=== PATIENT | male | born 1960 | race Caucasian/White ===

== ENCOUNTER → 2016-03-22 | Outpatient (CLI) | payer BC | END | disposition home or self-care (01) | CPT/HCPCS: 97802 ==

== ENCOUNTER 2016-04-08 08:53 | Day surgery (SDC) | payer BC ==
[2016-04-06 09:29] VITALS: BMI 45.1
[~2016-04-08 08:53] MED LIST: DEXAMETHASONE SOD PHOSPHATE 10 MG/ML 1 ML VIAL IV ONE; HEPARIN SODIUM,PORCINE 5,000 UNIT/ML 1 ML VIAL SQ ONE; MIDAZOLAM 2 MG/2 ML VIAL IV PRN; ceFAZolin 3 GM in SODIUM CHLORIDE 0.9% 100 ML IVPB ONE
[2016-04-08 09:12] VITALS: RESP 16
[2016-04-08] MEDS: LACTATED RINGERS 1,000 ML IV SCH (09:34)
[2016-04-08] MEDS ORDERED: LIDOCAINE 1% 20 ML VIAL (10MG/ML) FOR IV START INTRADERMA ONE ×2 (09:35→09:36)
[2016-04-08] MEDS: ONDANSETRON 4 MG/2 ML VIAL IVP ONE ×2 (09:37→14:46)
[2016-04-08] MEDS ORDERED: PROPOFOL 10 MG/ML 20 ML VIAL IV ONE (09:49)
[2016-04-08] MEDS ORDERED: ROCURONIUM BROMIDE 10 MG/ML 10 ML VIAL IV ONE (09:49)
[2016-04-08] MEDS ORDERED: MIDAZOLAM 2 MG/2 ML VIAL ONE (09:49)
[2016-04-08] MEDS ORDERED: GLYCOPYRROLATE 0.2 MG/ML 2 ML VIAL ONE (09:49)
[2016-04-08] MEDS ORDERED: fentaNYL (PF) 50 MCG/ML 2 ML AMP ONE (09:49)
[2016-04-08] MEDS ORDERED: SUCCINYLCHOLINE CHLORIDE VIAL 200 MG/10 ML VIAL IV ONE (09:49)
[2016-04-08] MEDS ORDERED: KETOROLAC 30 MG/ML 1 ML VIAL ONE (09:49)
[2016-04-08] MEDS ORDERED: LIDOCAINE 1% INJ 10MG/ML (20 ML MDV) ONE (09:49)
[2016-04-08] MEDS ORDERED: NEOSTIGMINE 1 MG/ML 10 ML VIAL ONE (09:49)
[2016-04-08] MEDS ORDERED: BUPIVACAIN-EPI 0.25%-1:200,000 30 ML VIAL SQ ONE (10:14)
[2016-04-08] MEDS ORDERED: LACTATED RINGERS 1,000 ML IV ONE (12:13)
--- NOTE | 2016-04-08 14:27 | P.OP ---
Date of Procedure: 04/08/16 Preoperative Diagnosis: Incarcerated ventral hernia Postoperative Diagnosis: Incarecerated ventral hernias containing preperitoneal fat, omentum and bowel, not stangulated Procedure(s) Performed: Robot assisted laparoscopic Ventral incisional hernia repair with mesh Implants: 20x 15 cm ventralight mesh with echo postioning system Anesthesia: LILLIAMA Surgeon: Shayy Falcon Estimated Blood Loss (ml): 15 Pathology: none sent Condition: stable Disposition: PACU Indications for Procedure: painful umbilical swelling with intermittent incarceration and pain. Operative Findings: 3 fasical defects between the umbilicus and epigastrium . Largest measured 2.1 x 1.8 other were smaller than 0.6 cm These contained the majority of the omentum , bowel and preperitoneal fat 2 fascial defects including hte umbilical hernia 1 cm accross and a smaller laterally 0.3 cm 2 fascial defects 5 cm inferior to the umbilicus on the right side of the midline. Description of Procedure: Informed consent was obtained and the patient prior to the operation. She was counseled in detail lose weight. The patient however was very impatient and did not want to go him to lose the recommended amount of weight. He also did not follow-up for sleep studies. According to the [facility] risk assessment to the patient has a complication rate of 23%. This was explained in detail to the patient. Due to the patient's severe symptoms and intermittent incarceration he was recommended this procedure and after a detailed discussion and multiple meetings informed consent was obtained as stated and confirmed in the preoperative area. Patient identified in the preoperative holding area taken the operating room placed in supine position given general anesthesia with endotracheal intubation. The patient's right arm was tucked and left was extended. After appropriately positioning the patient the patient was prepped and draped in the usual sterile surgical fashion. Appropriate timeout was called. Patient received 3 g of Ancef for skin prophylaxis and 5000 units of subcu heparin for thromboprophylaxis preoperatively. SCDs were placed. Left upper quadrant with a identified and infiltrated with lidocaine small incision was made with the help of 11 blade and then a Veress needle was introduced position of which was checked with the help of the drop test. The abdomen was then insufflated to 15 mmHg. Once that was done, 12 mm port was placed in the left upper quadrant and 2 8 mm ports were placed in the left upper quadrant and left lower quadrant respectively. At this time for laparoscopic scope was removed and the robot was docked with the 12 mm camera and the progress in the left hand and scissors in the right hand were taken.. The hernia was identified and it had incarcerated preperitoneal fat and omentum. This was gradually reduced so as to reduce all the omentum and the bowel. This revealed further 2 more fascial defects were next to the largest fascial defect which was measured to be approximately 2 cm x 1.5 cm. There are minimal less than 0.6 cm in size. The peritoneum was then stripped down To allow for good fascial exposure. Patient was noted to have diastases extending from xiphisternum to the bellybutton. At the level of the umbilicus there was one other fascial defect proximal to the 1 cm size containing preperitoneal fat as well as one other on the right lateral size approximately 0.3 cm in size. Due to further inferior to that both containing preperitoneal fat. Once all fascial margins were completely exposed the decision was made to close these fascial defects. The fascial defect right lateral to the umbilicus was closed with 0V lock. 2 of the 3 fascial defects in the epigastrium were also closed with V lock suture. The remaining were all very small and the decision was made to plicate the diastases and closed these fascial defects at that time. A running 4 Stratus fix was used starting from the epigastrium all the way down to the hypogastrium. The scope resulted in bringing the fascial margins close early symptoms and the patient attention on the initial suture closures and completely closing of all the other small fascial defects. The total length was measured to be approximately 20 cm. Decision was made to use a 15 x 20 ventral light mesh with echo positioning system which was brought through the 12 mm port site. After appropriate deployment of the balloon and having it opposed to the anterior abdominal wall mesh was sutured to the anterior abdominal wall at the edges with the help of 20V lock. At this time the balloon was deflated and removed. Another layer of suture was placed in the center of the mesh starting at the north and all the way down to the South end of the mesh thus suturing it in the center to the peritoneum as well. This was done under lower pressure of 12 mmHg. The mesh looked to be in good position and further document patient was obtained. The bowel and the bowel and the part of the omentum were all inspected and looked normal and healthy. At this time the procedure was completed the ruler the sutures and the balloon were all removed through the 12 mm port site after undocking of the robot. The 12 mm port site was closed with 4-0 PDS using a Tom Kohler. The ports were removed abdomen was desufflated and the skin was closed with the help of 4-0 Monocryl. Dermabond was applied. The patient tolerated the procedure well there were no complications patient was taken to recovery room in stable condition after extubation.
[2016-04-08 14:31] VITALS: TEMP 98
[2016-04-08] MEDS: HYDROmorphone 1 MG/ML 1 ML SYRINGE IVP PRN ×4 (14:40→15:12)
[2016-04-08] MEDS ORDERED: HYDROcodone/APAP 7.5-325MG 1 EACH TAB PO ONE (16:28)
[2016-04-08 17:13] VITALS: PULSE 75
[2016-04-08 17:14] VITALS: BP 175/86
== END 2016-04-08 17:33 | disposition home or self-care (01) ==
LOC: OR 08:53
PROVIDERS: ATTEND Surgery
DX: K43.6 Other and unspecified ventral hernia with obstruction, without gangrene (principal); E66.01 Morbid (severe) obesity due to excess calories; Z68.42 Body mass index [BMI] 45.0-49.9, adult; I10 Essential (primary) hypertension; E78.5 Hyperlipidemia, unspecified; Z79.899 Other long term (current) drug therapy
CPT/HCPCS: 49653; S2900

== ENCOUNTER → 2017-04-22 | Outpatient (CLI) | payer OTHER ==
--- NOTE | 2017-04-22 09:47 | CT ---
EXAMINATION TYPE: CT chest wo con DATE OF EXAM: 04/22/2017 COMPARISON: Unavailable HISTORY: pneumonia with abnormal chest xray CT DLP: 708.7 mGycm. Automated Exposure Control for Dose Reduction was Utilized. TECHNIQUE: CT scan of the thorax is performed without IV contrast. FINDINGS: LUNGS: The lungs are remarkable for only minimal posterior dependent atelectatic change, there is no concerning parenchymal mass or nodule identified. There is no pleural effusion or pneumothorax seen . The tracheobronchial tree is patent. MEDIASTINUM: Lack of IV contrast is noted to limit evaluation for mediastinal and especially hilar ad enopathy. There are no definitive greater than 1 cm hilar or mediastinal lymph nodes. No cardiomega ly or pericardial effusion is seen. OTHER: Coronary artery calcifications are present. Multiple subcentimeter hypodense foci are present scattered within the liver which are likely to represent cysts. IMPRESSION: Minimal dependent atelectasis, no evident airspace disease.
== END | disposition home or self-care (01) ==
LOC: RADCTMAIN 08:10
PROVIDERS: ATTEND Family Medicine
DX: J98.11 Atelectasis (principal)
CPT/HCPCS: 71250

== ENCOUNTER → 2018-02-13 | Outpatient (CLI) | payer OTHER ==
--- NOTE | 2018-02-13 07:56 | MR ---
EXAMINATION TYPE: MR shoulder LT wo con DATE OF EXAM: 02/13/2018 COMPARISON: 01/06/2018 HISTORY: Left shoulder pain TECHNIQUE: Multiplanar, multisequence imaging of the left shoulder is performed without contrast. FINDINGS: Rotator Cuff: There is a near full-thickness focal bursal surface tear of the anterior fibers of the supraspinatus measuring 1.2 x 1.5 cm. Additionally there is an articular surface tear of the fibers j ust distal to the myotendinous junction measuring 1.0 x 0.9 cm. Near the insertional fibers of the mi d and anterior supraspinatus there is a full-thickness 1.5 x 2.5 cm tear. There is mild tendinopathy of the remaining supraspinatus fibers. There is moderate tendinopathy of the infraspinatus with signal alteration of the myotendinous juncti on and distal fibers. A small articular surface tear of the insertional fibers measures 3 mm x 7 mm. Focal fissures are seen of the insertional fibers with additional bursal surface fraying. There is a bursal surface partial thickness tear measuring 6 x 8 mm of distal fibers. The teres minor demonstrates bursal surface fiber fraying without discrete tear. The subscapularis although is intact his diminutive fibers crossing the bicipital groove and altered intrinsic signal of mild tendinopathy. Acromioclavicular Joint: There is moderate acromioclavicular arthropathy with subchondral cysts, caps ular hypertrophy and marginal osteophytes. This creates impression upon the supraspinatus and interna l impingement. No significant downsloping of the acromion. Glenohumeral Joint: There is a high riding humeral head and mild glenohumeral arthropathy with joint space narrowing. Labrum: The labrum appears grossly intact given limitation of non-arthrogram study. However there diandra ears to be global labral degeneration. Biceps Tendon: There is a torn long head of the biceps tendon with few fibers that are seen extra art icularly and complex fluid of hemorrhage and debris. Bone marrow signal: No focal abnormal marrow signal is appreciated. Other: Fluid is seen within the subcoracoid and subdeltoid/subacromial bursa. IMPRESSION: 1. Full-thickness tear of the anterior fibers of the supraspinatus measuring 1.5 x 2.5 cm. No signifi cant supraspinatus atrophy. 2. Near full-thickness focal partial surface tear of the anterior fibers of the supraspinatus measuri ng 1.2 x 1.5 cm. 3. Small articular surface tear of the insertional fibers of the infraspinatus measuring 3 x 7 mm, bu rsal surface fraying, moderate tendinopathy, and partial-thickness tear of the bursal surface fibers measuring 6 x 8 mm distally. 4. Full-thickness tear of the biceps tendon with few fibers seen extra articularly as well as hemorrh age. 5. Moderate acromioclavicular arthropathy creating internal impingement of the supraspinatus. 6. Global labral degeneration. 7. Fluid within the subacromial/subdeltoid bursa and subcoracoid bursa from a small joint effusion. A dditionally clinically correlate for bursitis. 8. Tendinopathy appearing mild of the insertional fibers of the subscapularis and bursal surface fray ing of the teres minor.
== END | disposition home or self-care (01) ==
LOC: RADMRIMAIN 06:04
PROVIDERS: ATTEND Orthopaedic Surgery
DX: S46.212A Strain of muscle, fascia and tendon of other parts of biceps, left arm, initial encounter (principal); M19.012 Primary osteoarthritis, left shoulder; M25.012 Hemarthrosis, left shoulder; M75.122 Complete rotator cuff tear or rupture of left shoulder, not specified as traumatic; S46.912A Strain of unspecified muscle, fascia and tendon at shoulder and upper arm level, left arm, initial encounter; M67.814 Other specified disorders of tendon, left shoulder

== ENCOUNTER → 2018-03-31 | Outpatient (CLI) | payer BC ==
[2018-03-31 08:06] LABS: Basophils # (A) 0.1 k/uL (0-0.2); Basophils % (A) 1 %; Eosinophils # (A) 0.2 k/uL (0-0.7); Eosinophils % (A) 3 %; HCT 48.8 % (39.0-53.0); HGB 16.3 gm/dL (13.0-17.5); Lymphocytes # (A) 1.8 k/uL (1.0-4.8); Lymphocytes % (A) 27 %; MCH 32.6 pg (25.0-35.0); MCHC 33.5 g/dL (31.0-37.0); MCV 97.3 fL (80.0-100.0); Mean Platelet Volume 7.1; Monocytes # (A) 0.4 k/uL (0-1.0); Monocytes % (A) 5 %; Neutrophils # (A) 4.1 k/uL (1.3-7.7); Neutrophils % (A) 61 %; Platelet Count 197 k/uL (150-450); RBC 5.02 m/uL (4.30-5.90); RDW 12.8 % (11.5-15.5); WBC 6.7 k/uL (3.8-10.6)
[2018-03-31 08:41] LABS: Potassium 4.8 mmol/L (3.5-5.1)
== END | disposition home or self-care (01) ==
LOC: LABPAT 07:16
PROVIDERS: ATTEND Orthopaedic Surgery
DX: Z01.818 Encounter for other preprocedural examination (principal); M75.42 Impingement syndrome of left shoulder; Z01.812 Encounter for preprocedural laboratory examination
CPT/HCPCS: 36415; 80051; 85025; 93005

== ENCOUNTER → 2018-04-12 | Day surgery (SDC) | payer BC, OTHER ==
[2018-03-31 15:16] VITALS: BMI 41.0
--- NOTE | 2018-04-11 14:10 | HP ---
HISTORY AND PHYSICAL DATE OF SURGERY: 04/12/2018 Jefferson Sebastian is a 57-year-old patient seen with progressive left shoulder pain. We discussed treatment options. He elected to proceed with arthroscopy. Consent was obtained. PAST MEDICAL HISTORY: Hypertension, hyperlipidemia, hypothyroidism. PAST SURGICAL HISTORY: Right knee arthroscopy. DAILY MEDICATIONS: Atenolol, atorvastatin, levothyroxine, Lotensin. ALLERGIES: None. SOCIAL HISTORY: Denies tobacco use. PHYSICAL EVALUATION OF THE LEFT SHOULDER: Flexion 160 degrees, abduction is 140 degrees, external rotation is 30 degrees with pain and weakness. Tenderness is noted along the anterolateral acromion and rotator cuff insertion site. There is a positive impingement sign at 90 degrees. His distal neurovascular exam is intact. RADIOGRAPHS OF THE LEFT SHOULDER: Revealed a type 2 anterior acromion and cystic changes of the greater tuberosity. MRI of the left shoulder revealed rotator cuff tear and acromioclavicular joint osteoarthritis. IMPRESSION: 1. Left shoulder impingement with rotator cuff tear. 2. Left shoulder acromioclavicular joint osteoarthritis. PLAN: Left shoulder arthroscopy with subacromial decompression, possible arthroscopic rotator cuff repair, possible Odilon procedure and debridement. MMODL / IJN: [id number] /
[~2018-04-12] MED LIST changes: -HEPARIN SODIUM,PORCINE 5,000 UNIT/ML 1 ML VIAL SQ ONE; +HYDROmorphone 0.5 MG/0.5 ML SYRINGE IVP PRN; +LACTATED RINGERS 1,000 ML IV SCH; +LIDOCAINE 1% 20 ML VIAL (10MG/ML) FOR IV START INTRADERMA PRN; +LIDOCAINE 1% INJ 10MG/ML (20 ML MDV) ONE; -MIDAZOLAM 2 MG/2 ML VIAL IV PRN; +MIDAZOLAM 2 MG/2 ML VIAL ONE; +ONDANSETRON 4 MG/2 ML VIAL IVP ONE; +PHENYLEPHRINE-0.9% NACL SYG 1 MG/10 ML SYRINGE ONE; +PROPOFOL 10 MG/ML 20 ML VIAL IV ONE; +ROPIVACAINE 5 MG/ML 30 ML VIAL ONE; +SCOPOLAMINE 1.5MG/72HR PATCH TRANSDERM ONE; +SUCCINYLCHOLINE CHLORIDE VIAL 200 MG/10 ML VIAL IV ONE; -ceFAZolin 3 GM in SODIUM CHLORIDE 0.9% 100 ML IVPB ONE; +fentaNYL (PF) 50 MCG/ML 2 ML AMP ONE
[2018-04-12 09:23] VITALS: RESP 16
--- NOTE | 2018-04-12 10:33 | P.ONQ ---
Anesthesiology Proc Note - PNB - Peripheral Nerve Block Performed Left Interscalene Single Time Out Performed: Yes Procedure Start Time: :46 Procedure Stop Time: :58 Indication: Acute Post-Operative Pain, Analgesia, Requested by physician Sedation Type: Sedate with meaningful contact maintained Preparation: Sterile Prep Position: Supine Catheter: None Needle Types: On-Q Needle Size: 50mm (2") Technique: Ultrasound Injectate: 0.5% Ropivacaine (see comment for volume) (total 20ml) Blood Aspirated: No Pain Paresthesia on Injection Noted: No Resistance on Injection: Normal Events: Uneventful and Well Tolerated
--- NOTE | 2018-04-12 12:06 | P.OP ---
Date of Procedure: 04/12/18 Preoperative Diagnosis: Left shoulder impingement Postoperative Diagnosis: 1. Left shoulder rotator cuff tear 2. Left shoulder impingement 3. Left shoulder acromioclavicular joint osteoarthritis Procedure(s) Performed: 1. Left shoulder arthroscopic rotator cuff repair 2. Left shoulder arthroscopic subacromial decompression 3. Left shoulder arthroscopic Odilon procedure Implants: 54.75 Arthrex swivel lock anchors Anesthesia: GETA, regional (Interscalene block) Surgeon: Duncan Duran Feed Crusher Operator #1: Jose David Malin Estimated Blood Loss (ml): 10 Pathology: none sent Condition: stable Disposition: PACU Indications for Procedure: 57-year-old patient seen with progressive left shoulder pain. After treatment options were discussed, he elected to proceed with arthroscopy. Operative Findings: See description of procedure Description of Procedure: Patient underwent an interscalene block by department of anesthesia. The patient was then taken to the operative suite. The patient underwent a general anesthetic by the department of anesthesia. The patient was placed into a lateral position and secured. There was appropriate padding of the bony prominence. Left shoulder was then prepped and draped in normal sterile orthopedic fashion. We placed the extremity in 10 pounds of longitudinal traction. A posterior incision was now made for a posterior working portal site. The trocar and cannula were inserted into the glenohumeral joint. Arthroscopy was initiated. Spinal needle was now inserted anteriorly, to ascertain the anterior working portal site. An incision was now made in that area, a trocar was inserted followed by a probe. There was an obvious long head biceps tendon rupture with a reminiscent stump. I introduced a motorized shaver through the anterior working portal site debrided that down to stable tissue. The labrum was probed and found to be stable. There were some grade 1 chondral moist changes of the humeral head but no osteochondral tears were present. I couldn't visualize a large rotator cuff tear from the glenohumeral side. At this point instruments removed from glenohumeral joint. Utilizing the posterior working portal site, the trocar and cannula were inserted into the subacromial space. Arthroscopy initiated. I made an incision 2 fingerbreadths lateral to the acromion. I introduced my trocar followed by my ArthroCare ablator. I now began ablating thick subacromial bursal tissue, which exposed the undersurface of the anterior acromion. There was diminished subacromial space. There was a very prominent anterior acromion. A motorized bur was introduced and a subacromial decompression was performed. I also excised some osteophytes off the inferior aspect of the distal clavicle. The AC joint was visualized and noted to be fairly arthritic. The motorized bur was introduced in the anterior portal site and a Odilon procedure was performed without difficulty, decompressing the AC joint nicely. I turned my attention to the rotator cuff. There was a 3 cm rotator cuff tear. I debrided the margins getting down to stable tendon tissue. I introduced my motorized bur and abraded the footprint area, getting some petechial bleeding. I now made an accessory portal site off the lateral aspect of the acromion. I punched 2 holes medial for medial row fixation with the assistance of Rob ALBA carefully tapping the punch with a mallet as I held the punch and the camera. I now introduced both anchors into the pre-punched holes and Rob ALBA tapped them with the mallet as I held anchors and the camera. Rob ALBA now screwed the anchors in place a while I held the anchor guide and camera. All 8 limbs of suture were now passed through good bites of rotator cuff tendon. I saw an area posteriorly with probable dogear and I passed 2 suture link sutures through that. I now punched 2 holes for lateral row fixation again I held the punch and camera while Rob ALBA used a mallet to tap in the punch. We now passed sutures through both anchors and individually I introduced the anchors into the pre-punch holes I held the anchor guide in position with one hand holding the camera with the other hand while Rob ALBA tensioned the sutures and screwed in the anchors one at a time. I now introduced one more anchor laterally to accommodate the 2 suture links. The residual suture limbs were now clipped. We had good compression of the tendon along the entire footprint. Instruments now removed from the portal sites. All portal sites were approximated with nylon suture. Sterile dressings were applied followed by a shoulder immobilizer. Jose David ALBA assisted in this complex case. The patient was awakened, transferred to a bed, and taken to recovery in stable condition.
[2018-04-12 12:11] VITALS: TEMP 97.8
[2018-04-12 13:34] VITALS: BP 134/71; PULSE 55
== END | disposition home or self-care (01) ==
LOC: OR 08:58
PROVIDERS: ATTEND Orthopaedic Surgery
DX: M75.102 Unspecified rotator cuff tear or rupture of left shoulder, not specified as traumatic (principal); M75.42 Impingement syndrome of left shoulder; M19.012 Primary osteoarthritis, left shoulder; M25.712 Osteophyte, left shoulder; I10 Essential (primary) hypertension; E78.5 Hyperlipidemia, unspecified; E03.9 Hypothyroidism, unspecified; E66.9 Obesity, unspecified; Z68.41 Body mass index [BMI] 40.0-44.9, adult; Z79.890 Hormone replacement therapy; Z79.899 Other long term (current) drug therapy; Z79.1 Long term (current) use of non-steroidal anti-inflammatories (NSAID)
CPT/HCPCS: 64415; 29824; 29827; 29826; C1713 ×4; C1765; J2250; J0330; J0690; J2001; J3010; J2795; J2370; J2704

== ENCOUNTER 2018-12-27 10:02 | Day surgery (SDC) | payer BC ==
[2018-12-25 15:23] VITALS: BMI 42.4
[~2018-12-27 10:02] MED LIST changes: -DEXAMETHASONE SOD PHOSPHATE 10 MG/ML 1 ML VIAL IV ONE; -HYDROmorphone 0.5 MG/0.5 ML SYRINGE IVP PRN; -LIDOCAINE 1% INJ 10MG/ML (20 ML MDV) ONE; -MIDAZOLAM 2 MG/2 ML VIAL ONE; -ONDANSETRON 4 MG/2 ML VIAL IVP ONE; -PHENYLEPHRINE-0.9% NACL SYG 1 MG/10 ML SYRINGE ONE; -PROPOFOL 10 MG/ML 20 ML VIAL IV ONE; -ROPIVACAINE 5 MG/ML 30 ML VIAL ONE; -SCOPOLAMINE 1.5MG/72HR PATCH TRANSDERM ONE; -SUCCINYLCHOLINE CHLORIDE VIAL 200 MG/10 ML VIAL IV ONE; -fentaNYL (PF) 50 MCG/ML 2 ML AMP ONE
[2018-12-27 10:51] VITALS: RESP 18; TEMP 97.7
[2018-12-27] MEDS ORDERED: PROPOFOL 10 MG/ML 20 ML VIAL IV ONE (11:20)
[2018-12-27] MEDS ORDERED: LIDOCAINE 1% INJ 10MG/ML (20 ML MDV) ONE (11:20)
--- NOTE | 2018-12-27 11:54 | P.PCN ---
Date of Procedure: 12/27/18 Procedure(s) Performed: BRIEF HISTORY: Patient is a 58-year-old [id number], scheduled for an elective colonoscopy as a part of screening for colorectal neoplasia. His sister was diagnosed with colon cancer at age 50. His last colonoscopy was 5 years ago. PROCEDURE PERFORMED: Colonoscopy with snare polypectomy. PREOPERATIVE DIAGNOSIS: Screening for colon cancer/family history of colon cancer. IV sedation per Anesthesia. PROCEDURE: After informed consent was obtained, the patient, was brought into the endoscopy unit. IV sedation was administered by Anesthesia under continuous monitoring. Digital rectal examination was normal. Initially the Olympus CF-160 flexible video colonoscope was then inserted in the rectum, gradually advanced into the cecum without any difficulty. Careful examination was performed as the scope was gradually being withdrawn. Ileocecal valve and the appendiceal orifice were visualized and appeared normal. Prep was excellent. The base of the cecum there was a 2 cm broad-based polyp that was removed by piecemeal snare polypectomy. Ascending colon there was a 1 cm polyp removed by snare polypectomy. Rest of the mucosa of the cecum, ascending colon, transverse colon, descending colon appeared normal. In the sigmoid colon there were 2 small sessile 5 mm polyps removed by snare polypectomy. Rest of the , sigmoid colon, and rectum appeared normal. Retroflexion was performed in the rectum and no lesions were seen. The patient tolerated the procedure well. IMPRESSION: 2 cm broad-based polyp in the base of the cecum status post piecemeal snare polypectomy 1 cm ascending colon polyp status post polypectomy 5 mm 2 sessile; polyp status post snare polypectomy RECOMMENDATIONS: Findings of this examination were discussed with the patient as well as his family. He was advised to follow with the biopsy results and have a repeat surveillance colonoscopy in 3 years from now.
[2018-12-27 12:15] VITALS: BP 102/67; PULSE 51
== END 2018-12-27 12:53 | disposition home or self-care (01) ==
LOC: ORWHC2ENDO 10:02
PROVIDERS: ATTEND Internal Medicine Gastroenterology
DX: Z12.11 Encounter for screening for malignant neoplasm of colon (principal); D12.0 Benign neoplasm of cecum; K63.5 Polyp of colon; I10 Essential (primary) hypertension; E78.5 Hyperlipidemia, unspecified; E07.9 Disorder of thyroid, unspecified; E66.01 Morbid (severe) obesity due to excess calories; Z80.0 Family history of malignant neoplasm of digestive organs; Z79.890 Hormone replacement therapy; Z79.899 Other long term (current) drug therapy; Z98.890 Other specified postprocedural states; Z68.41 Body mass index [BMI] 40.0-44.9, adult
CPT/HCPCS: 88305; 45385; J2001; J2704

== ENCOUNTER → 2020-04-15 | Outpatient (CLI) | payer BC | END | disposition home or self-care (01) | LOC: LABPAT 11:13 | PROVIDERS: ATTEND Orthopaedic Surgery | DX: Z01.812 Encounter for preprocedural laboratory examination (principal) | CPT/HCPCS: 87070 ==

== ENCOUNTER → 2020-05-05 | Outpatient (CLI) | payer BC ==
[~2020-05-05] MED LIST changes: +DOBUTamine DRIP for NUC MED 500 MG in DEXTROSE/WATER 1 250ML.BAG IV PRN; -LACTATED RINGERS 1,000 ML IV SCH; -LIDOCAINE 1% 20 ML VIAL (10MG/ML) FOR IV START INTRADERMA PRN
--- NOTE | 2020-05-05 16:45 | ECHOS ---
STRESS ECHOCARDIOGRAM DOBUTAMINE STRESS ECHOCARDIOGRAM DATE OF SERVICE: 05/05/2020 LUMASON: N/A Vial INDICATIONS: Chest pain. MEDICATIONS: BASELINE HEART RATE: 69 BASELINE BLOOD PRESSURE: 150/83 MAXIMUM HEART RATE: 145. MAXIMUM BLOOD PRESSURE: 165/82. 85% MPHR: 138 100% MPHR: 162 METS: MAXIMUM STAGE REACHED: 3 TOTAL EXERCISE TIME: 8:31 CLINICAL INFORMATION: STRESS DATA: Heart rate 69, pressure is 150/83 mmHg. Baseline EKG showed sinus mechanism. Dobutamine infusion at a dose of 10 mcg/kg per minute was initiated and increased to 30 mcg/kg per minute per protocol. Max heart rate was 145, which is about which is about 85% of maximum predicted heart rate. Maximum blood pressure was 165/82 mmHg. Clinically, the patient did not have any symptoms and the EKG did not show any significant ST or T-wave abnormalities concerning for ischemia. ECHOCARDIOGRAM IMAGES: On echocardiogram images from parasternal long axis, parasternal short axis view, apical 4 chamber and apical 2 chamber obtained as the baseline images, at the peak of the heart rate as well as on recovery and the echocardiogram images showed good augmentation in the left ventricular systolic function. CONCLUSION: 1. Normal EKG in response to dobutamine. 2. Normal echocardiogram in response to dobutamine. MMODL / IJN: [id number] /
== END ==
LOC: RADNMMAIN 09:12
PROVIDERS: ATTEND Family Medicine
DX: R94.31 Abnormal electrocardiogram [ECG] [EKG] (principal)
CPT/HCPCS: 93351; J1250; Q9950

== ENCOUNTER → 2020-05-06 | Outpatient (CLI) | payer BC ==
[2020-05-06 09:16] LABS: Basophils # (A) 0.1 k/uL (0-0.2); Basophils % (A) 1 %; Eosinophils # (A) 0.2 k/uL (0-0.7); Eosinophils % (A) 3 %; HCT 47.6 % (39.0-53.0); HGB 15.9 gm/dL (13.0-17.5); Lymphocytes # (A) 1.5 k/uL (1.0-4.8); Lymphocytes % (A) 25 %; MCHC 33.5 g/dL (31.0-37.0); MCV 95.4 fL (80.0-100.0); Mean Platelet Volume 7.4; Monocytes # (A) 0.4 k/uL (0-1.0); Monocytes % (A) 7 %; Neutrophils # (A) 3.9 k/uL (1.3-7.7); Neutrophils % (A) 63 %; Platelet Count 178 k/uL (150-450); RBC 4.99 m/uL (4.30-5.90); RDW 12.7 % (11.5-15.5); WBC 6.2 k/uL (3.8-10.6)
[2020-05-06 09:24] LABS: Prothrombin Time 10.6 sec (9.0-12.0)
[2020-05-06 09:29] LABS: Potassium 4.6 mmol/L (3.5-5.1)
== END | disposition home or self-care (01) ==
LOC: LABPAT 08:10
PROVIDERS: ATTEND Orthopaedic Surgery
DX: Z01.812 Encounter for preprocedural laboratory examination (principal); M17.12 Unilateral primary osteoarthritis, left knee
CPT/HCPCS: 36415; 80051; 85025; 85610

== ENCOUNTER 2020-05-12 08:21 | Day surgery (SDC) | payer BC ==
[2020-05-05 11:58] VITALS: BMI 39.6
--- NOTE | 2020-05-11 12:06 | HP ---
HISTORY AND PHYSICAL REASON FOR ADMISSION: Surgery scheduled 05/12/2020. HISTORY OF PRESENT ILLNESS: Jefferson Sebastian is a 59-year-old gentleman seen with progressive left knee pain. We discussed options. He elected to proceed with left total knee arthroplasty. Consent regarding the procedure was obtained. Medical clearance was provided by Dr. Berg. PAST MEDICAL HISTORY: Hypertension, hyperlipidemia, hypothyroidism. PAST SURGICAL HISTORY: Knee arthroscopy. MEDICATIONS: Atenolol, atorvastatin, levothyroxine, meloxicam, benazepril, hydrochlorothiazide. SOCIAL HISTORY: Denies current tobacco use. PHYSICAL EXAMINATION: Evaluation of the left knee: Range of motion 0-125. Moderate effusion. Tenderness medial joint line. Crepitus medial patellofemoral compartments with range of motion. Pain with patellofemoral compression. Ligaments stable. Hip rotation without pain. Distal neurovascular exam is intact. RADIOGRAPHS: Radiographs of the left knee reveal severe osteoarthritic changes. IMPRESSION: 1. Left knee osteoarthritis. 2. Hypertension. 3. Hyperlipidemia. 4. Hypothyroidism. PLAN: Left total knee arthroplasty. Surgery is 05/12/2020. MMODL / IJN: [id number] /
[~2020-05-12 08:21] MED LIST changes: +ACETAMINOPHEN TAB 500 MG TAB PO PRN; +DEXAMETHASONE SOD PHOSPHATE 4 MG/ML 1 ML VIAL IV ONE; -DOBUTamine DRIP for NUC MED 500 MG in DEXTROSE/WATER 1 250ML.BAG IV PRN; +LACTATED RINGERS 1,000 ML IV SCH; +LIDOCAINE 1% (10MG/ML) FOR IV START INTRADERMA PRN; +MELOXICAM 7.5 MG TAB PO PRN; +MIDAZOLAM 2 MG/2 ML VIAL IV PRN; +ONDANSETRON 4 MG/2 ML VIAL IVP ONE; +ROPIVACAINE/EPI/CLONIDINE/KET 50 ML SYRINGE MISCELLANE PRN; +TRANEXAMIC ACID 1,000 MG in SODIUM CHLORIDE 0.9% 100 ML IVPB PRN; +ceFAZolin 3 GM in SODIUM CHLORIDE 0.9% 100 ML IVPB PRN
[2020-05-12] MEDS ORDERED: ACETAMINOPHEN TAB 500 MG TAB ONE (09:03)
[2020-05-12] MEDS ORDERED: MIDAZOLAM 2 MG/2 ML VIAL IVP ONE (09:17)
[2020-05-12 09:43] VITALS: TEMP 97.3
--- NOTE | 2020-05-12 10:05 | P.ANPRN ---
Procedure Note - Anesthesia - Nerve Block Performed Left Adductor Canal Infusion Time Out Performed: Yes (916) Date of Procedure: 05/12/20 Procedure Start Time: :17 Procedure Stop Time: :30 Location of Patient: PreOp Indication: Acute Post-Operative Pain, Analgesia, Dx/Pain Location Specifically requested for management of pain by DrMehrdad: Duncan Duran Sedation Type: Sedate with meaningful contact maintained Preparation: Sterile Prep, Sterile Dressing Position: Supine Catheter: Indwelling Needle Types: Pajunk Needle Gauge: 20 Ultrasound used to visualize needle placement: Yes Ultrasound used to observe medication spread: Yes Injectate: 0.5% Ropivacaine (see comment for volume) (20 mL) Blood Aspirated: No Pain Paresthesia on Injection Noted: No Resistance on Injection: Normal Image Stored and Saved: Yes Events: Uneventful and Well Tolerated
--- NOTE | 2020-05-12 10:06 | P.ANPRN ---
Procedure Note - Anesthesia - Nerve Block Performed Left Other (see comment) Single Time Out Performed: Yes (916) Date of Procedure: 05/12/20 Procedure Start Time: :17 Procedure Stop Time: :30 Location of Patient: PreOp Indication: Acute Post-Operative Pain, Analgesia, Dx/Pain Location, Requested by Surgeon Specifically requested for management of pain by : Duncan Duran Sedation Type: Sedate with meaningful contact maintained Preparation: Sterile Prep Position: Supine Catheter: None Needle Types: Pajunk Needle Gauge: 20 Ultrasound used to visualize needle placement: Yes Ultrasound used to observe medication spread: Yes Injectate: 0.5% Ropivacaine (see comment for volume) (20 ML) Blood Aspirated: No Pain Paresthesia on Injection Noted: No Resistance on Injection: Normal Image Stored and Saved: Yes Events: Uneventful and Well Tolerated
[2020-05-12] MEDS ORDERED: ROCURONIUM 10 MG/ML (5 ML VIAL) IV ONE (10:12)
[2020-05-12] MEDS ORDERED: GLYCOPYRROLATE 0.2 MG/ML 2 ML VIAL ONE (10:12)
[2020-05-12] MEDS ORDERED: SODIUM CHLORIDE 0.9% 100 ML BAG ONE (10:12)
[2020-05-12] MEDS ORDERED: TRANEXAMIC ACID 1,000 MG/10 ML VIAL ONE (10:12)
[2020-05-12] MEDS ORDERED: PROPOFOL 10 MG/ML 20 ML VIAL IV ONE (10:12)
[2020-05-12] MEDS ORDERED: HYDROmorphone (PF) 1 MG/ML ONE (10:12)
[2020-05-12] MEDS ORDERED: fentaNYL (PF) 50 MCG/ML 2 ML AMP ONE (10:12)
[2020-05-12] MEDS ORDERED: SUCCINYLCHOLINE CHLORIDE 100 MG/5 ML SYR IV ONE (10:12)
[2020-05-12] MEDS ORDERED: NEOSTIGMINE 1 MG/ML 10 ML VIAL ONE (10:12)
[2020-05-12] MEDS ORDERED: MIDAZOLAM 2 MG/2 ML VIAL ONE (10:12)
[2020-05-12] MEDS ORDERED: ceFAZolin 1,000 MG in SODIUM CHLORIDE 0.9% 1,000 ML IRRIGATION ONE (10:45)
[2020-05-12] MEDS ORDERED: LACTATED RINGERS 1,000 ML IV ONE ×2 (11:45→12:10)
[2020-05-12] MEDS ORDERED: HYDROmorphone 0.5 MG/0.5 ML SYRINGE IVP PRN (12:10)
[2020-05-12] MEDS ORDERED: NALOXONE 0.4 MG/ML 1 ML VIAL IV PRN (12:10)
[2020-05-12] MEDS ORDERED: HYDROcodone/APAP 7.5-325MG 1 EACH TAB PO PRN (12:10)
[2020-05-12] MEDS ORDERED: HYDROmorphone 0.2 MG/1 ML SYRINGE IVP PRN (12:10)
[2020-05-12] MEDS ORDERED: ONDANSETRON 4 MG/2 ML VIAL IVP PRN (12:10)
[2020-05-12] MEDS ORDERED: HYDROcodone/APAP 5-325MG 1 EACH TAB PO PRN (12:10)
[2020-05-12] MEDS ORDERED: HYDROmorphone 1 MG/ML 1 ML SYRINGE IVP PRN (12:10)
--- NOTE | 2020-05-12 12:10 | P.OP ---
Date of Procedure: 05/12/20 Preoperative Diagnosis: Left knee osteoarthritis Postoperative Diagnosis: Left knee osteoarthritis Procedure(s) Performed: Left total knee arthroplasty Implants: 1. Depuy attune size 7 left cruciate retaining cemented femur 2. Depuy attune size 7 fixed bearing cemented tibial baseplate 3. Depuy attune size 7 fixed bearing cruciate retaining 12 mm polyethylene tibial insert 4. Depuy attune knee 38 mm all polyethylene cemented patella Anesthesia: GETA, regional (Adductor canal catheter, IPack block ) Surgeon: Duncan Duran Change Lead #1: Jose David Malin Estimated Blood Loss (ml): 45 Pathology: other (Bone) Condition: stable Disposition: PACU Indications for Procedure: 59-year-old patient seen with symptomatic left knee osteoarthritis. After treatment options were discussed, he elected to proceed with total knee arthroplasty. Operative Findings: See description of procedure Description of Procedure: Patient was taken to the operative suite after having an adductor canal catheter placed by the department of anesthesia and an I-Pack block performed by the department of anesthesia for postoperative pain management. Patient underwent a general anesthetic by the department of anesthesia. Patient was given preoperative IV intake antibiotics and TXA. A well-padded tourniquet was placed about the left lower extremity. The lower extremity was then prepped and draped in the normal sterile orthopedic fashion. The extremity was elevated, a tourniquet was insufflated to 300. A standard anterior incision was made sharply through skin. Dissection was taken down through the subcutaneous soft tissues down to the extensor mechanism. A medial arthrotomy was performed, patella was everted and knee was flexed. There was advanced osteoarthritis noted. I introduced my distal intramedullary femoral drill. I then introduced the distal femoral cutting jig. Rob ALBA secured the cutting jig with 2 pins. I held retractors in position while Rob ALBA performed the distal femoral resection through the guide area we now removed her distal femoral cutting guide. We now placed our 4-in-1 femoral cutting block and positioned and it was secured with 2 pins by Rob ALBA while I held the block in position. The distal femoral finishing was now completed. A proximal tibial cutting guide was positioned. I held the guide in the appropriate position with both hands well Rob ALBA inserted stabilizing pins into the guide. Proximal tibial cut was made. We now placed a trial femoral component into position, along with an appropriate size tibial tray and insert. We now took the knee through range of motion and had full extension good flexion and good overall soft tissue balance noted. The patella was everted and stabilized with 2 towel clips held by Rob ALBA while I performed a flush with patellar quad tendon utilizing a fresh sawblade. We templated the patella, appropriate drill holes were made. An appropriate trial patella was positioned, knee was taken through full range of motion with the patella tracking very nicely. The trial patella was removed. Drill holes were made through the femoral component. All trial components were removed after marking off the appropriate rotation of the tibia. Retractors were now positioned along the proximal tibia. An appropriate keel punch was made with the appropriate size tibial guide by myself on Rob ALBA assisted by holding retractors. At this point appropriate size implants were chosen and opened. The joint was irrigated copiously with pulse lavage mechanical irrigation. The posterior capsule was infiltrated with local analgesic. The wound was irrigated with pulse lavage mechanical irrigation. We mixed antibiotic methylmethacrylate. We placed the knee into flexion. We placed multiple retractors assisted by Rob ALBA to expose the proximal tibia. Once the methyl methacrylate was ready, the tibial component was cemented into place removing any excess methylmethacrylate form by both myself and Rob ALBA. The femoral component was cemented into place removing the removing any excess methylmethacrylate performed by both myself and Rob ALBA. We then inserted the appropriate size polyethylene tibial insert. We made sure that it was locked into position. We took the knee into full extension, and then back in a flexion making sure we had removed any excess methylmethacrylate. The patellar component was then cemented down and secured with clamp. Excess methylmethacrylate removed. We kept the knee in full exten kings, patellar clamp in position until methylmethacrylate had hardened. Once it had hardened the patellar clamp was removed. The knee was taken through full range of motion. The patella tracked nicely. There was good soft tissue balancing. The tourniquet was now released. Additional hemostasis was achieved via electrocautery. A second gram of TXA was given. The wound again was irrigated with pulse lavage mechanical irrigation. The superficial soft tissues were infiltrated local analgesic. The extensor mechanism was repaired with Vicryl. We checked the repair with range of motion and it was stable. The subcutaneous soft tissues were repaired with Vicryl in layers. The skin was approximated with pernio/Dermabond. Sterile dressings were applied followed by loose web roll and Ramses bandage. The patient was transferred to a bed, and taken to recovery in stable and satisfactory condition. Rob ALBA assisted with this complex procedure.
[2020-05-12] MEDS: HYDROmorphone 0.5 MG/0.5 ML SYRINGE IVP PRN ×4 (12:48→13:05)
[2020-05-12 12:49] VITALS: RESP 16
[2020-05-12] MEDS ORDERED: KETOROLAC 15 MG/ML 1 ML VIAL IVP ONE (12:55)
[2020-05-12] MEDS ORDERED: ROPIVACAINE 0.2%-NS ON-Q PUMP 1,090 MG, EMPTY PAIN BALL 1 EACH MISCELLANE PRN (12:56)
--- NOTE | 2020-05-12 14:09 | XR ---
EXAMINATION TYPE: XR knee limited LT DATE OF EXAM: 05/12/2020 COMPARISON: NONE HISTORY: 59-year-old male evaluation for postoperative abnormality in alignment. TECHNIQUE: 2 views FINDINGS: Images show placement of left total knee arthroplasty. Both distal femoral and proximal tibial compon ents of the prosthesis appear well seated without periprosthetic fracture. Alignment grossly anatomic . Surgical benton present along the medial tibial plateau, possible MCL repair. Underlying joint eff usion, anterior soft tissue swelling, scattered soft tissue air, and intra-articular air related to r ecent operation. IMPRESSION: Uncomplicated postoperative appearance left total knee arthroplasty. Additional surgical staple at th e medial tibial plateau.
[2020-05-12] MEDS ORDERED: HYDROcodone/APAP 7.5-325MG 1 EACH TAB PO ONE (14:29)
[2020-05-12] MEDS ORDERED: ceFAZolin 3 GM in SODIUM CHLORIDE 0.9% 100 ML IVPB ONE (16:00)
[2020-05-12 16:42] VITALS: BP 131/80; PULSE 61
== END 2020-05-12 17:07 | disposition home health service (06) ==
LOC: OR 08:21
PROVIDERS: ATTEND Orthopaedic Surgery
DX: M17.12 Unilateral primary osteoarthritis, left knee (principal); I10 Essential (primary) hypertension; E78.5 Hyperlipidemia, unspecified; E03.9 Hypothyroidism, unspecified; Z79.890 Hormone replacement therapy; Z79.899 Other long term (current) drug therapy; Z79.1 Long term (current) use of non-steroidal anti-inflammatories (NSAID)
CPT/HCPCS: 27447; 97110; 97161; 64447; 64448; 76942; 88300; 73560; C1776; C1713; J2250; J1100; J2710; J0690 ×2; J2405; J3010; J1170 ×2; J1885; J0330; J2704; J2795

== ENCOUNTER 2020-07-21 10:59 | Day surgery (SDC) | payer BC ==
[2020-07-17 11:37] VITALS: BMI 43.8
[~2020-07-21 10:59] MED LIST changes: +HYDROmorphone 0.5 MG/0.5 ML SYRINGE IVP PRN; -LACTATED RINGERS 1,000 ML IV SCH; -LIDOCAINE 1% (10MG/ML) FOR IV START INTRADERMA PRN; +Pre Op ABX Message 1 EACH MISC MISCELLANE ONE; +SCOPOLAMINE 1.5MG/72HR PATCH TRANSDERM ONE; -ceFAZolin 3 GM in SODIUM CHLORIDE 0.9% 100 ML IVPB PRN
[2020-07-21] MEDS: LACTATED RINGERS 1,000 ML IV SCH ×2 (11:41→16:36)
[2020-07-21] MEDS ORDERED: fentaNYL (PF) 50 MCG/ML 2 ML AMP IVP ONE ×2 (12:17→12:18)
[2020-07-21] MEDS ORDERED: MIDAZOLAM 2 MG/2 ML VIAL IVP ONE ×2 (12:17→12:18)
--- NOTE | 2020-07-21 12:32 | P.HPOR ---
History of Present Illness H&P Date: 07/21/20 Chief Complaint: Left knee quadriceps tendon rupture 60-year-old gentleman who had undergone left total knee arthroplasty approximately 2 months ago. About 12 days ago he was going down some stairs assisted hyperflexing and landing on his left knee. He was subsequently found to have a quadriceps tendon rupture. I recommended open repair. He was agreeable [facility] was obtained. Review of Systems Constitutional: Reports as per HPI Past Medical History Past Medical History: Hyperlipidemia, Hypertension, Thyroid Disorder Additional Past Medical History / Comment(s): hx of colon polyps, lt knee injury History of Any Multi-Drug Resistant Organisms: None Reported Past Surgical History: Hernia Repair, Joint Replacement, Orthopedic Surgery Additional Past Surgical History / Comment(s): lt rotator cuff, abdominal hernia repair, LT KNEE SX X 3. RT KNEE SX X 2, lt knee replacement Past Anesthesia/Blood Transfusion Reactions: No Reported Reaction Smoking Status: Never smoker - Past Family History Father Family Medical History: Cancer Additional Family Medical History / Comment(s): prostate, COLON Sister(s) Family Medical History: Cancer Additional Family Medical History / Comment(s): COLON Medications and Allergies Home Medications Medication Instructions Recorded Confirmed Type Atenolol [Tenormin] 50 mg PO QAM 03/04/15 07/21/20 History Atorvastatin [Lipitor] 20 mg PO DAILY 03/04/15 07/21/20 History Levothyroxine Sodium [Synthroid] 125 mcg PO QAM 03/04/15 07/21/20 History Benazepril HCl 20 mg PO BID 04/06/16 07/21/20 History hydroCHLOROthiazide 25 mg PO DAILY 04/06/16 07/21/20 History Meloxicam 7.5 mg PO BID 03/31/18 07/17/20 History Aspirin [Adult Low Dose Aspirin EC] 81 mg PO BID #60 tablet.dr 05/12/20 07/17/20 Rx Antibiotic (Unknown Name) 1 tab PO BID 07/17/20 07/21/20 History Cannabidiol (Cbd) [Epidiolex] 1 dose TOPICAL DAILY PRN 07/17/20 07/21/20 History Allergies Allergy/AdvReac Type Severity Reaction Status Date / Time No Known Allergies Allergy Verified 07/21/20 11:42 Physical Examination Osteopathic Statement: *. No significant issues noted on an osteopathic structural exam other than those noted in the History and Physical/Consult. There is a well-healed anterior incision left knee. There is a palpable defect at the superior patella/quadriceps tendon interface with a defect measuring 1.5 cm. The patient is unable to extend his knee. There is no erythema or evidence for infective process. Distal neurovascular exam is intact. Tyrese and Homans are both negative. Collateral ligaments are stable. Results - Labs Result Diagrams: 07/21/20 11:40 - Diagnostic results Knee x-ray: image reviewed (Stable appearing total knee arthroplasty with no fracture) Assessment and Plan Assessment: 1. Left knee quadriceps tendon rupture 2. History left total knee arthroplasty 3. Hypertension 4. Hyperlipidemia Plan: Open repair left knee quadriceps tendon rupture Time with Patient: Greater than 30
[2020-07-21] MEDS ORDERED: SODIUM CHLORIDE 0.9% 100 ML BAG ONE (13:03)
[2020-07-21] MEDS ORDERED: SUCCINYLCHOLINE CHLORIDE VIAL 200 MG/10 ML VIAL IV ONE (13:03)
[2020-07-21] MEDS ORDERED: PROPOFOL 10 MG/ML 20 ML VIAL IV ONE (13:03)
[2020-07-21] MEDS ORDERED: fentaNYL (PF) 50 MCG/ML 2 ML AMP ONE (13:03)
[2020-07-21] MEDS ORDERED: ROPIVACAINE 5 MG/ML 30 ML VIAL ONE (13:03)
[2020-07-21] MEDS ORDERED: DEXAMETHASONE SOD PHOSPHATE 4 MG/ML 1 ML VIAL ONE (13:03)
[2020-07-21] MEDS ORDERED: TRANEXAMIC ACID 1,000 MG/10 ML VIAL ONE (13:03)
[2020-07-21] MEDS ORDERED: LIDOCAINE 1% INJ 10MG/ML (20 ML MDV) ONE (13:03)
[2020-07-21] MEDS ORDERED: MIDAZOLAM 2 MG/2 ML VIAL ONE (13:03)
[2020-07-21] MEDS ORDERED: HYDROmorphone (PF) 1 MG/ML ONE (13:03)
[2020-07-21] MEDS ORDERED: ceFAZolin 1,000 MG in SODIUM CHLORIDE 0.9% 1,000 ML IRRIGATION ONE (13:30)
[2020-07-21] MEDS ORDERED: HYDROcodone/APAP 5-325MG 1 EACH TAB PO PRN (14:26)
[2020-07-21] MEDS ORDERED: NALOXONE 0.4 MG/ML 1 ML VIAL IV PRN (14:26)
[2020-07-21] MEDS ORDERED: LACTATED RINGERS 1,000 ML IV ONE (14:26)
[2020-07-21] MEDS ORDERED: HYDROmorphone 0.5 MG/0.5 ML SYRINGE IVP PRN (14:26)
[2020-07-21] MEDS ORDERED: ONDANSETRON 4 MG/2 ML VIAL IVP PRN (14:26)
[2020-07-21] MEDS ORDERED: HYDROmorphone 1 MG/ML 1 ML SYRINGE IVP PRN (14:26)
[2020-07-21] MEDS ORDERED: HYDROmorphone 0.2 MG/1 ML SYRINGE IVP PRN (14:26)
--- NOTE | 2020-07-21 14:26 | P.OP ---
Date of Procedure: 07/21/20 Preoperative Diagnosis: Left knee quadriceps tendon tear Postoperative Diagnosis: Left knee quadriceps tendon tear Procedure(s) Performed: Left knee open quadriceps tendon repair Anesthesia: GETA, regional (Adductor canal block), local Surgeon: Duncan Duran Rhia #1: Jose David Malin Estimated Blood Loss (ml): 25 Pathology: none sent Condition: stable Disposition: PACU Indications for Procedure: 60-year-old gentleman seen with a left knee quadriceps tendon tear. I recommended open repair. He was agreeable. Consent was obtained. Operative Findings: see description of procedure Description of Procedure: The patient was taken to the operative suite. Patient received an adductor canal block by the department of anesthesia. He underwent a general anesthetic by the department of anesthesia. He received preoperative IV antibiotics. A well-padded tourniquet was placed proximal left lower extremity. The left lower extremity was prepped and draped in the normal sterile orthopedic fashion. The extremity was elevated and tourniquet insufflated to 300. I made an incision through previous cicatrix. I immediately encountered hemarthrosis. That was evacuated. There was complete tear/rupture of the quadriceps tendon involving somewhat the lateral retinaculum. I dissected out and exposed the entire tear. Some of the frayed ends of the tendon were debrided out. The total knee arthroplasty appears stable. The joint was irrigated with pulse lavage mechanical irrigation. There was good tendon attachment along the proximal pole of the patella. I now it performed a [id number] tendon repair utilizing 6 Arthrex suture tapes with a proximal distal Krakw stitch technique. I now sewed each one individually approximated tendon very nicely. I now took the knee to about 80/90 of flexion with good stable repair noted. I now oversew the entire repair with #2 FiberWire. I again checked the repair with flexion to about 80/90 with good stable repair noted. The subcu soft tissues were approximated with 2-0 Vicryl. The skin was prepped with skin benton. Sterile dressings were applied. The tourniquet was released with immediate capillary refill the entire extremity noted. A sterile Ramses bandage was applied. The leg was placed into a immobilizer. The patient was awakened having tolerated procedure well. Rob ALBA assisted with the procedure.
[2020-07-21] MEDS: HYDROmorphone 1 MG/ML 1 ML SYRINGE IVP ONE ×2 (14:59→15:04)
--- NOTE | 2020-07-21 17:01 | P.CONS ---
History of Present Illness - Reason for Consult Consult date: 07/21/20 medical management - History of Present Illness This is a 60-year-old white male who 1 admitted to the hospital under or full for left knee quadriceps tendon rupture. He underwent surgery without complications. At the time of examination he's post op, no chest pain no abdominal pain no nausea no vomiting no shortness of breath. He reports some left knee pain that is mild. Family at bedside. He denies diarrhea or constipation. Review of Systems 10 systems reviewed, pertinent positive and negative findings as in HPI. No chest pain, no abdominal pain Past Medical History Past Medical History: Hyperlipidemia, Hypertension, Thyroid Disorder Additional Past Medical History / Comment(s): hx of colon polyps, lt knee injury History of Any Multi-Drug Resistant Organisms: None Reported Past Surgical History: Hernia Repair, Joint Replacement, Orthopedic Surgery Additional Past Surgical History / Comment(s): lt rotator cuff, abdominal hernia repair, LT KNEE SX X 3. RT KNEE SX X 2, lt knee replacement Past Anesthesia/Blood Transfusion Reactions: No Reported Reaction Smoking Status: Never smoker - Past Family History Father Family Medical History: Cancer Additional Family Medical History / Comment(s): prostate, COLON Sister(s) Family Medical History: Cancer Additional Family Medical History / Comment(s): COLON Medications and Allergies Home Medications Medication Instructions Recorded Confirmed Type Atenolol [Tenormin] 50 mg PO QAM 03/04/15 07/21/20 History Atorvastatin [Lipitor] 20 mg PO DAILY 03/04/15 07/21/20 History Levothyroxine Sodium [Synthroid] 125 mcg PO QAM 03/04/15 07/21/20 History Benazepril HCl 20 mg PO BID 04/06/16 07/21/20 History hydroCHLOROthiazide 25 mg PO DAILY 04/06/16 07/21/20 History Meloxicam 7.5 mg PO BID 03/31/18 07/17/20 History Aspirin [Adult Low Dose Aspirin EC] 81 mg PO BID #60 tablet. 05/12/20 07/17/20 Rx Antibiotic (Unknown Name) 1 tab PO BID 07/17/20 07/21/20 History Cannabidiol (Cbd) [Epidiolex] 1 dose TOPICAL DAILY PRN 07/17/20 07/21/20 History Allergies Allergy/AdvReac Type Severity Reaction Status Date / Time No Known Allergies Allergy Verified 07/21/20 11:42 Physical Exam Vitals: Vital Signs Temp Pulse Pulse Pulse Resp BP Pulse Ox 07/21/20 16:35 63 16 144/78 99 07/21/20 16:26 67 16 139/76 97 07/21/20 16:00 98.0 F 71 16 174/79 98 07/21/20 15:45 65 16 135/76 98 07/21/20 15:31 60 16 151/75 96 07/21/20 15:16 63 16 144/77 96 07/21/20 15:01 69 16 154/81 95 07/21/20 14:46 97.3 F L 76 15 138/71 95 07/21/20 12:29 58 L 16 130/62 97 07/21/20 11:35 97.2 F L 62 16 154/75 95 Intake and Output 07/21/20 07/21/20 07/21/20 06:59 14:59 22:59 Intake Total 1101 250 Output Total 20 Balance 1081 250 Intake: IV 1101 250 Output: Estimated Blood Loss 20 Other: Weight 136 kg Constitutional: No acute distress, conversant, pleasant Eyes: Anicteric sclerae, moist conjunctiva, PERRLA ENMT: NC/AT,Oropharynx clear Neck:Supple, FROM, no masses, or JVD Lungs: Clear to auscultation, Clear to percussion, Normal respiratory effort, no accessory muscle use Cardiovascular: Heart regular in rate and rhythm, No murmurs, gallops, or rubs no peripheral edema Abdominal: Soft Nontender, nom distended, no guarding, no rebound or rigidity, obese Skin: Normal temperature, tone, texture, turgor, No induration No subcutaneous nodules, No rash, lesions, No ulcers Extremities:No digital cyanosis No clubbing, Pedal pulses intact and symmetrical Radial pulses intact and symmetrical Normal gait and station, No calf tenderness. Left knee surgery, wrapped Psychiatric: Alert and oriented to person, place and time, Appropriate affect Intact judgement Neuro: Muscles Strength 5/5 in all 4 extremities, Sensation to light touch grossly present throughout, Cranial nerves II-XII grossly intact. No focal sensory deficits Results CBC & Chem 7: 07/21/20 11:40 Assessment and Plan Plan: 1.Left knee quadriceps tendon rupture: Post surgery, also following, pain control as indicated. 2. Hyperlipidemia continue statin 3. Morbid obesity: BMI 42.4 4. Essential hypertension: Continue benazepril and atenolol, hold HCTZ 5. Hypothyroidism: Continue Synthroid Thank you for the consultation Treatment plan discussed with the patient, his at bedside and nursing staff.
--- NOTE | 2020-07-21 18:10 | P.ANPRN ---
Procedure Note - Anesthesia - Nerve Block Performed Left Adductor Canal Single Time Out Performed: Yes Date of Procedure: 07/21/20 Procedure Start Time: 12:34 Procedure Stop Time: 12:40 Location of Patient: PreOp Indication: Acute Post-Operative Pain, Dx/Pain Location, Requested by Surgeon Specifically requested for management of pain by : Duncan Duran Sedation Type: Sedate with meaningful contact maintained Preparation: Sterile Prep Position: Supine Catheter: None Needle Types: Pajunk Needle Gauge: 21 Ultrasound used to visualize needle placement: Yes Ultrasound used to observe medication spread: Yes Injectate: 0.5% Ropivacaine (see comment for volume) Blood Aspirated: No Pain Paresthesia on Injection Noted: No Resistance on Injection: Normal Image Stored and Saved: Yes Events: Uneventful and Well Tolerated (30cc 0.5% Ropivacaine)
[2020-07-21] MEDS ORDERED: SENNOSIDES-DOCUSATE SODIUM 1 EACH TAB PO SCH (21:00)
[2020-07-21] MEDS: lisinopriL 20 MG TAB PO SCH (21:12)
[2020-07-21] MEDS: HYDROcodone/APAP 5-325MG 1 EACH TAB PO PRN (21:12)
[2020-07-21] MEDS: ceFAZolin 3 GM in SODIUM CHLORIDE 0.9% 100 ML IVPB SCH (22:17)
[2020-07-22] MEDS: LACTATED RINGERS 1,000 ML IV SCH ×3 (01:01→13:24)
[2020-07-22] MEDS: HYDROcodone/APAP 5-325MG 1 EACH TAB PO PRN ×2 (03:53→10:14)
[2020-07-22 03:59] VITALS: BP 115/66; PULSE 64; RESP 16; TEMP 97.6
[2020-07-22] MEDS: ceFAZolin 3 GM in SODIUM CHLORIDE 0.9% 100 ML IVPB SCH (05:32)
[2020-07-22] MEDS ORDERED: LEVOTHYROXINE 125 MCG TAB PO SCH (06:30)
[2020-07-22 06:48] LABS: Basophils % (A) 0 %; Eosinophils % (A) 0 %; HCT 41.8 % (39.0-53.0); HGB 14.3 gm/dL (13.0-17.5); Lymphocytes # (A) 1.2 k/uL (1.0-4.8); Lymphocytes % (A) 13 %; MCH 32.8 pg (25.0-35.0); MCHC 34.2 g/dL (31.0-37.0); MCV 95.9 fL (80.0-100.0); Mean Platelet Volume 7.3; Monocytes # (A) 0.4 k/uL (0-1.0); Monocytes % (A) 4 %; Neutrophils # (A) 7.7 k/uL (1.3-7.7); Neutrophils % (A) 82 %; Platelet Count 193 k/uL (150-450); RBC 4.36 m/uL (4.30-5.90); RDW 12.8 % (11.5-15.5); WBC 9.3 k/uL (3.8-10.6)
[2020-07-22] MEDS: lisinopriL 20 MG TAB PO SCH (08:27)
[2020-07-22] MEDS ORDERED: atenoloL 50 MG TAB PO SCH (09:00)
[2020-07-22] MEDS ORDERED: ENOXAPARIN 40 MG/0.4 ML SYRINGE SQ SCH (09:00)
[2020-07-22] MEDS ORDERED: ATORVASTATIN 20 MG TAB PO SCH (09:00)
--- NOTE | 2020-07-22 11:31 | P.PN ---
Subjective Progress Note Date: 07/22/20 (delayed charting seen at 0930) Principal diagnosis: left knee pain Patient is a 60-year-old male with hypertension, dyslipidemia, and hypothyroidism who presented for repair of a left quadriceps tendon rupture that occurred during a fall approximately 1-2 weeks ago. He tolerated the procedure well. Patient seen and examined at bedside. He states his pain is well controlled. He denies any nausea, vomiting, chest pain, shortness of breath. General: non toxic, no distress, appears at stated age, obese Derm: warm, dry Head: atraumatic, normocephalic, symmetric Eyes: EOMI, no lid lag, anicteric sclera Mouth: no lip lesion, mucus membranes moist Cardiovascular: S1S2 reg, no murmur, positive posterior tibial pulse bilateral, Lungs: CTA bilateral, no rhonchi, no rales , no accessory muscle use Abdominal: soft, nontender to palpation, no guarding, no appreciable organom egaly Ext: no gross muscle atrophy, no edema, no contractures, left leg in brace Neuro: CN II-XI grossly intact, no focal neuro deficits Psych: Alert, oriented, appropriate affect 60-year-old male status post left quadriceps tendon rupture repair. He has not walked yet Hypertension - Controllled - HCTZ on hold, resume on discharge - ACEI - Atenolol Dyslipidemia -Statin Hypothyroidism -Synthroid Morbid obesity with BMI 42.4 -Structured outpatient weight loss Thank you for allowing us to participate in the care of this pleasant patient. Do not hesitate to contact us with questions. Someone can be reached from the [facility] hospitalist group all hours of the day at [phone] or via perfect serve. Med rec addressed Medically optimized for discharge at the discression of ortho Objective - Vital Signs Vital signs: Vital Signs Temp 97.6 F 07/22/20 03:58 Pulse 64 07/22/20 03:58 Resp 16 07/22/20 03:58 BP 115/66 07/22/20 03:58 Pulse Ox 98 07/22/20 03:58 Intake & Output 07/21/20 07/22/20 07/22/20 18:59 06:59 18:59 Intake Total 2711 1000 Output Total 20 1000 Balance 2691 0 Weight 136 kg Intake: IV 1351 Intake, IV Titration 200 1000 Amount Lactated Ringers 1,000 ml 200 800 @ 100 mls/hr IV .Q10H [facility] Rx#:[id number] ceFAZolin 3 gm In Sodium 200 Chloride 0.9% 100 ml @ 200 mls/hr IVPB Q8H [facility] Rx#:[id number] Oral 1160 Output: Urine 1000 Estimated Blood Loss 20 Other: Voiding Method Urinal Urinal - Labs CBC & Chem 7: 07/22/20 06:28 07/21/20 11:40
--- NOTE | 2020-07-22 12:59 | P.PN ---
Subjective Progress Note Date: 07/22/20 Principal diagnosis: Status post left knee open quadriceps tendon repair Patient was examined today at bedside, his is present. He is resting comfortably. He is utilizing a knee immobilizer. The postoperative bandage is in good position and condition. His pain is well-controlled. He denies any chest pain or shortness of breath at this time. Objective - Vital Signs Vital signs: Vital Signs Temp 97.6 F 07/22/20 03:58 Pulse 64 07/22/20 03:58 Resp 16 07/22/20 03:58 BP 115/66 07/22/20 03:58 Pulse Ox 98 07/22/20 03:58 Intake & Output 07/21/20 07/22/20 07/22/20 18:59 06:59 18:59 Intake Total 2711 1000 Output Total 20 1000 Balance 2691 0 Weight 136 kg Intake: IV 1351 Intake, IV Titration 200 1000 Amount Lactated Ringers 1,000 ml 200 800 @ 100 mls/hr IV .Q10H [facility] Rx#:[id number] ceFAZolin 3 gm In Sodium 200 Chloride 0.9% 100 ml @ 200 mls/hr IVPB Q8H [facility] Rx#:[id number] Oral 1160 Output: Urine 1000 Estimated Blood Loss 20 Other: Voiding Method Urinal Urinal - Exam Left lower extremity: Postoperative bandages in good position and condition. There is no drainage visualized on the bandage. The skin is warm touch both proximal distal to the splint. His sensation to light touch both proximal distal to the wrap are intact. He is able wiggle the toes no difficulty. His calf is soft, there is no tenderness with palpation. - Labs CBC & Chem 7: 07/22/20 06:28 07/21/20 11:40 Assessment and Plan Assessment: Postoperative day #1 status post left knee open quadriceps tendon repair Plan: Pain control, we'll discharge home on [place] 7.5 mg/325 mg DVT prophylaxis, aspirin 81 mg daily Wound care instructions were discussed, bandaging instructions were discussed. Patient will remove. Managed tomorrow Knee immobilizer instructions along with weightbearing status were discussed with patient at bedside. Patient will remain toe-touch weightbearing over the next 2 weeks and utilize brace at all times when ambulating Medical recommendations Plan for discharge home today Time with Patient: Less than 30
--- NOTE | 2020-07-22 13:05 | P.DS ---
Providers Date of admission: 07/21/2020 Expected date of discharge: 07/22/20 Attending physician: Duncan Duran Consults: 07/21/20 14:26 Consult Physician Routine Consulting Provider: Bernardo Simmons Consult Reason/Comments: Medical management Do you want consulting provider notified?: Yes Primary care physician: Suresh Lancaster [facility] Course: Date of admission: 07/21/2020 Date of discharge: 07/22/2020 Admission diagnosis: Status post left knee open quadriceps tendon repair Discharge diagnosis: Same Attending physician: Dr. Duran Surgical procedures: Left knee open quadriceps tendon repair Brief history: Patient is a 60-year-old male who underwent a left total knee arthroplasty by Dr. Duran in May 2020. Patient had been doing great well with his rehab process. I did evaluate patient last week in the office after he sustained a fall at home. It was determined he had a left quadriceps tendon tear, he was then scheduled for surgery with Dr. Duran for 07/21/2020. Hospital course: Details of patient's surgery can be found in operative report. Patient tolerated the procedure well and was subsequently transported to orthopedic floor. Patient's orthopeidc and medical care was provided daily. Patient had daily laboratory tests performed for evaluation of overall blood counts. Patient had daily physical therapy to include strengthening range of motion as well as education with walker ambulation. Patient was treated with Lovenox for their postoperative DVT prophylaxis during their inpatient stay. Patient was noted to have a relatively uneventful postoperative course. Patient reported satisfactory pain control with oral pain medications by postoperative day 0. Patient showed satisfactory progress with physical therapy. Patient moved steadily through the program and had no difficulty meeting the goals by postoperative day 1. Given patient's otherwise satisfactory course and having met physical therapy goals, plan is to discharge patient home on postoperative day 1. Discharge condition/disposition: Patient will be discharged home in stable condition. Discharge medications: Instructions are given on resumption of patient's normal daily medications per primary care recommendation, in addition patient will be prescribed [place] 7.5 mg/325 mg. Discharge instructions: 1. Wound care and infection precautions, keep incision dry and covered while showering, no lotions, creams, moisturizers. No soaking, tubs, pools, hottubs. Do not scrub over the incision. 2. Toe-touch weightbearing with walker / cane until follow-up. 3. Ice and elevate when necessary. Do not exceed 20 minutes per hour with ice pack. 4. Utilize compression sleeve until seen at first follow up appointment. 7. Pain meds and anticoagulants per prescription. 8. Pain medication has potential to cause constipation. Increase oral fluid and fiber intake. Contact primary care provider if you have not had a bowel movement within 48 hours after discharge 9. No anti-inflammatory medication until discussed at first post operative visit, this including Motrin, Aleve, Mobic, Diclofenac 10. Follow up in office at 2 weeks postop with Rob Malin PA-C/Jalen Trujillo 11. Follow up with your primary care doctor 7-10 days after discharge. 12. Contact [facility] with any questions, . Procedures: Left knee open quadriceps tendon repair Patient Condition at Discharge: Good Plan - Discharge Summary Discharge Rx Participant: No New Discharge Prescriptions: New HYDROcodone/APAP 7.5-325MG [[place] 7.5] 1 each PO Q6HR PRN #21 tab PRN Reason: Pain Continue Levothyroxine Sodium [Synthroid] 125 mcg PO QAM Atorvastatin [Lipitor] 20 mg PO DAILY Atenolol [Tenormin] 50 mg PO QAM Benazepril HCl 20 mg PO BID hydroCHLOROthiazide 25 mg PO DAILY No Action Meloxicam 7.5 mg PO BID Aspirin [Adult Low Dose Aspirin EC] 81 mg PO BID #60 tablet. Antibiotic (Unknown Name) 1 tab PO BID Cannabidiol (Cbd) [Epidiolex] 1 dose TOPICAL DAILY PRN PRN Reason: Pain Discharge Medication List Atenolol [Tenormin] 50 mg PO QAM 03/04/15 [History] Atorvastatin [Lipitor] 20 mg PO DAILY 03/04/15 [History] Levothyroxine Sodium [Synthroid] 125 mcg PO QAM 03/04/15 [History] Benazepril HCl 20 mg PO BID 04/06/16 [History] hydroCHLOROthiazide 25 mg PO DAILY 04/06/16 [History] Meloxicam 7.5 mg PO BID 03/31/18 [History] Aspirin [Adult Low Dose Aspirin EC] 81 mg PO BID #60 tablet. 05/12/20 [Rx] Antibiotic (Unknown Name) 1 tab PO BID 07/17/20 [History] Cannabidiol (Cbd) [Epidiolex] 1 dose TOPICAL DAILY PRN 07/17/20 [History] HYDROcodone/APAP 7.5-325MG [[place] 7.5] 1 each PO Q6HR PRN #21 tab 07/22/20 [Rx] Follow up Appointment(s)/Referral(s): Jose David Malin PAC [PHYSICIAN VISUAL SPECIALIST] - 2 Weeks Activity/Diet/Wound Care/Special Instructions: Orthopedic Discharge Instructions: 1. Wound care and infection precautions, keep incision dry and covered while showering, no lotions, creams, moisturizers. No soaking, pools, hot tubs. Do not scrub over incision. 2. Toe-touch weightbearing with walker / cane until follow-up. 3. Ice and elevate when necessary. Do not exceed 20 minutes per hour with ice pack. 4. Utilize compression sleeve until seen at first follow up appointment. 5. Pain meds and anticoagulants per prescription. 6. Pain medication has potential to cause constipation. Increase oral fluid and fiber intake. Contact primary care provider if you have not had a bowel movement within 48 hours after discharge. 7. No anti-inflammatory medication until discussed at first post operative visit, this including Motrin, Aleve, Mobic, Diclofenac. 8. Follow up in office at 2 weeks postop with Rob Malin PA-C/Jalen Pina PA-C 9. Follow up with your primary care doctor 7-10 days after discharge. 10. Contact [facility] with any questions, . Discharge Disposition: HOME SELF-CARE
[2020-07-22 13:31] LABS: African American GFR (CKD) 113.3 (60.0-200.0); Albumin 3.9 g/dL (3.80-4.90); Albumin/Globulin Ratio 2.17 (1.60-3.17); Anion Gap 7.7 mmol/L (4.00-12.00); BUN/Creat Ratio 18.75 Ratio (12.00-20.00); Carbon Dioxide 28.3 mmol/L (21.6-31.8); Globulin 1.8 g/dL (1.6-3.3); Non-African American GFR(CKD) 97.8 (60.0-200.0); Potassium 4.5 mmol/L (3.5-5.5); Total Bilirubin 0.3 mg/dL (0.3-1.2); Total Protein 5.7 g/dL (6.2-8.2)
== END 2020-07-22 14:07 | disposition home or self-care (01) ==
LOC: OR 10:59 → 5NMEDONC 15:08 → OR 07-22 14:07
PROVIDERS: ATTEND Orthopaedic Surgery
DX: S76.112A Strain of left quadriceps muscle, fascia and tendon, initial encounter (principal); X50.1XXA Overexertion from prolonged static or awkward postures, initial encounter; I10 Essential (primary) hypertension; E78.5 Hyperlipidemia, unspecified; E03.9 Hypothyroidism, unspecified; M19.90 Unspecified osteoarthritis, unspecified site; Z86.010 Personal history of colon polyps; Z96.652 Presence of left artificial knee joint; Z98.890 Other specified postprocedural states; Z80.42 Family history of malignant neoplasm of prostate; Z80.0 Family history of malignant neoplasm of digestive organs; Z79.1 Long term (current) use of non-steroidal anti-inflammatories (NSAID); Z79.82 Long term (current) use of aspirin; Z79.890 Hormone replacement therapy; Z79.899 Other long term (current) drug therapy
CPT/HCPCS: 97162; 64999; 76942; 80053; 84132; 85025; 87635; 27385; C1713; J2250; J0330; J1100; J0690 ×3; J2405; J2001; J1650; J3010; J1170 ×2; J2795; J2704

== ENCOUNTER → 2021-03-17 | Outpatient (CLI) | payer BC ==
--- NOTE | 2021-03-17 08:46 | CT ---
EXAMINATION TYPE: CT ankle RT wo con DATE OF EXAM: 03/17/2021 COMPARISON: None. HISTORY: arthritis and pain. CT DLP: 172 mGycm Automated exposure control for dose reduction was used. CONTRAST: CT performed right ankle without contrast FINDINGS: There is mild to moderate spurring from the medial malleolus greatest anteriorly and mild s purring from the lateral malleolus. Ankle mortise symmetry is preserved. Small calcification distal Achilles tendon. Small to moderate size inferior calcaneal spur. Moderate to severe narrowing at the subtalar joint. Posterior 1.1 cm os trigonum is present on sagitt al image 15. Small to moderate tibiotalar joint effusion greatest anteriorly. Loss of normal sinus ta rsi fat. Remainder of the visualized hindfoot and midfoot articulations are maintained. Small vessel arterial vascular calcification is present. Mild diffuse subcutaneous edema is seen. Abnormal fluid signal surrounds at the FDL and FHL tendons posterior to the distal tibia axial image 29 for reference IMPRESSION: Degenerative changes as detailed above. 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 At least tenosynovitis of the FDL and FHL tendons.
== END | disposition home or self-care (01) ==
LOC: RADCTMAIN 07:37
PROVIDERS: ATTEND Orthopaedic Surgery Foot and Ankle Surgery
DX: M19.071 Primary osteoarthritis, right ankle and foot (principal)

== ENCOUNTER → 2021-04-11 | Outpatient (CLI) | payer BC | END | disposition home or self-care (01) | LOC: LABWHC1 08:10 | PROVIDERS: ATTEND Family Medicine | DX: Z01.818 Encounter for other preprocedural examination (principal) | CPT/HCPCS: U0003; C9803 ==

== ENCOUNTER → 2022-02-12 | Outpatient (CLI) | payer BC ==
--- NOTE | 2022-02-12 07:56 | CT ---
EXAMINATION TYPE: CT foot RT wo con CT DLP: 246.2 mGycm, Automated exposure control for dose reduction was used. DATE OF EXAM: 02/12/2022 6:44 AM COMPARISON: CT right ankle 03/17/2021. CLINICAL INDICATION:Male, 61 years old with history of Z47.89 aftercare following surgery; PHH, After care following surgery TECHNIQUE: Axial images were obtained of the right foot without the use of IV contrast. Additional c oronal and sagittal reformatted images and soft tissue and bone window were obtained for review. 3-D reconstruction was created on a separate workstation. FINDINGS: Interval postoperative changes with 3 fixation screws extending from the calcaneus into the talus. Hardware appears intact without surrounding lucency. No dislocation. No acute fracture. The v isualized hindfoot and midfoot articulation are maintained. Small calcification distal Achilles tendon. Small to moderate size inferior calcaneal spur. Severe na rrowing at the subtalar joint. Posterior 1.1 cm os trigonum is again demonstrated. Small-sized tibiot alar joint effusion is demonstrated. There is again loss of normal sinus tarsi fat. Mild to moderate spurring from the medial malleolus and mild spurring from the lateral malleolus. Ankle mortise symmet ry is preserved. Small vessel arterial vascular calcifications. Mild diffuse subcutaneous edema. IMPRESSION: 1. No acute fracture or dislocation. 2. Postsurgical changes with fixation hardware involving the talus and calcaneus. Hardware appears i ntact without surrounding lucency. 3. Degenerative changes.
== END | disposition home or self-care (01) ==
LOC: RADCTMAIN 06:26
PROVIDERS: ATTEND Orthopaedic Surgery Foot and Ankle Surgery
DX: M19.071 Primary osteoarthritis, right ankle and foot (principal); Z47.89 Encounter for other orthopedic aftercare

== ENCOUNTER → 2022-02-23 | Day surgery (SDC) | payer BC ==
[2022-02-19 14:26] VITALS: BMI 43.0
[~2022-02-23] MED LIST changes: -ACETAMINOPHEN TAB 500 MG TAB PO PRN; -DEXAMETHASONE SOD PHOSPHATE 4 MG/ML 1 ML VIAL IV ONE; -HYDROmorphone 0.5 MG/0.5 ML SYRINGE IVP PRN; +LACTATED RINGERS 1,000 ML IV SCH; +LIDOCAINE 1% (10MG/ML) FOR IV START INTRADERMA PRN; -MELOXICAM 7.5 MG TAB PO PRN; -MIDAZOLAM 2 MG/2 ML VIAL IV PRN; -ONDANSETRON 4 MG/2 ML VIAL IVP ONE; +ONDANSETRON 4 MG/2 ML VIAL IVP PRN; +PROPOFOL 10 MG/ML 20 ML VIAL IV ONE; -Pre Op ABX Message 1 EACH MISC MISCELLANE ONE; -ROPIVACAINE/EPI/CLONIDINE/KET 50 ML SYRINGE MISCELLANE PRN; -SCOPOLAMINE 1.5MG/72HR PATCH TRANSDERM ONE; -TRANEXAMIC ACID 1,000 MG in SODIUM CHLORIDE 0.9% 100 ML IVPB PRN
[2022-02-23 08:30] VITALS: TEMP 97.9
[2022-02-23 08:40] LABS: Glucose,Whole Blood 94 mg/dL (70-110)
--- NOTE | 2022-02-23 09:39 | P.PCN ---
Date of Procedure: 02/23/22 Procedure(s) Performed: BRIEF HISTORY: Patient is a 61-year-old pleasant white male scheduled for an elective colonoscopy as a part of evaluation of prior history of colon polyps PROCEDURE PERFORMED: Colonoscopy with biopsy PREOPERATIVE DIAGNOSIS: []. IV sedation per Anesthesia. PROCEDURE: After informed consent was obtained, the patient, was brought into the endoscopy unit. IV sedation was administered by Anesthesia under continuous monitoring. Digital rectal examination was normal. Initially the Olympus CF-160 flexible video colonoscope was then inserted in the rectum, gradually advanced into the cecum without any difficulty. Careful examination was performed as the scope was gradually being withdrawn. Ileocecal valve and the appendiceal orifice were visualized and appeared normal. Prep was excellent. Mucosa of the cecum, ascending colon, transverse colon, descending colon, sigmoid colon, and rectum appeared normal. In the sigmoid: There was a 3 mm polyp that was removed by cold biopsy. Retroflexion was performed in the rectum and no lesions were seen. The patient tolerated the procedure well. IMPRESSION: 3 mm igmoid: Polyp status post cold biopsy Rest of the colon appeared normal RECOMMENDATIONS: Findings of this examination were discussed with the patient as well as his family. He was advised to follow with the biopsy results. If the biopsy reveals adenoma he can have a repeat colonoscopy in 5 years..
[2022-02-23 10:47] VITALS: BP 118/72; PULSE 81; RESP 16
== END ==
LOC: ORWHC2ENDO 07:21
PROVIDERS: ATTEND Internal Medicine Gastroenterology
DX: Z12.11 Encounter for screening for malignant neoplasm of colon (principal); K63.5 Polyp of colon; I10 Essential (primary) hypertension; E78.5 Hyperlipidemia, unspecified; E07.9 Disorder of thyroid, unspecified; M19.90 Unspecified osteoarthritis, unspecified site; Z79.890 Hormone replacement therapy; Z86.010 Personal history of colon polyps; Z79.899 Other long term (current) drug therapy; Z79.82 Long term (current) use of aspirin; Z98.890 Other specified postprocedural states
CPT/HCPCS: 88305; 45380; J2704

== ENCOUNTER → 2022-09-14 | Outpatient (CLI) | payer BC ==
[2022-09-14 09:15] LABS: Prothrombin Time 10.3 sec (9.0-12.0)
[2022-09-14 16:39] LABS: Basophils # (A) 0.05 X 10*3/uL (0.00-0.10); Basophils % (A) 0.8 %; Eosinophils # (A) 0.14 X 10*3/uL (0.04-0.35); Eosinophils % (A) 2.2 %; HCT 48.8 % (39.6-50.0); Lymphocytes # (A) 1.47 X 10*3/uL (0.90-5.00); Lymphocytes % (A) 23.4 %; MCH 31.1 pg (27.0-32.0); MCHC 32.8 d/dL (32.0-37.0); MCV 94.9 FL (80.0-97.0); Mean Platelet Volume 9.8 FL (9.5-12.2); Monocytes # (A) 0.52 X 10*3/uL (0.20-1.00); Monocytes % (A) 8.3 %; NRBC Per 100 WBC 0 X 10*3/uL (0.00-0.01); Neutrophils # (A) 4.08 X 10*3/uL (1.80-7.70); Neutrophils % (A) 65.1 %; Platelet Count 213 X 10*3/uL (140-440); RBC 5.14 X 10*6/uL (4.40-5.60); RDW 12.6 % (11.5-14.5); WBC 6.27 X 10*3/uL (4.50-10.00)
[2022-09-14 17:50] LABS: BUN/Creat Ratio 17.88 Ratio (12.00-20.00); Blood Urea Nitrogen 14.3 mg/dL (9.0-27.0); Calcium 9.9 mg/dL (8.7-10.3); Carbon Dioxide 25.8 mmol/L (21.6-31.8); Chloride 102 mmol/L (96-109); Glucose 89 mg/dL (70-110); Potassium 4.2 mmol/L (3.5-5.5); Sodium 141 mmol/L (135-145)
== END | disposition home or self-care (01) ==
LOC: LABPAT 07:43
PROVIDERS: ATTEND Orthopaedic Surgery
DX: Z01.818 Encounter for other preprocedural examination (principal); M16.12 Unilateral primary osteoarthritis, left hip; Z22.322 Carrier or suspected carrier of Methicillin resistant Staphylococcus aureus
CPT/HCPCS: 80048; 85025; 85610; 87070; 93005

== ENCOUNTER 2022-09-20 05:38 | Day surgery (SDC) | payer BC ==
[2022-09-15 09:43] VITALS: BMI 39.0
--- NOTE | 2022-09-19 21:41 | HP ---
HISTORY AND PHYSICAL DATE OF SURGERY: 09/20/2022. HISTORY OF PRESENT ILLNESS: Jefferson Sebastian is a 62-year-old gentleman seen with symptomatic left hip osteoarthritis failing conservative treatment measures. We discussed options. He elected to proceed with direct anterior left total hip arthroplasty. Consent regarding the procedure was obtained. PAST MEDICAL HISTORY: Hypertension, hypothyroidism, hyperlipidemia. PAST SURGICAL HISTORY: Right total knee arthroplasty. DAILY MEDICATIONS: 1. Atenolol. 2. Atorvastatin. 3. Levothyroxine. 4. Meloxicam. 5. Benazepril. 6. Hydrochlorothiazide. 7. Tylenol. ALLERGIES: None. SOCIAL HISTORY: He denies tobacco use. PHYSICAL EVALUATION OF LEFT KNEE: He has diffuse tenderness about the hip girdle. Limited range of motion with severe pain. Positive hip impingement sign. Straight leg raise negative. Distal neurovascular exam is intact. RADIOGRAPHS: Radiographs of the left hip reveal severe osteoarthritic changes. IMPRESSION: 1. Left hip osteoarthritis. 2. Hypertension. 3. Hyperlipidemia. 4. Hypothyroidism. PLAN: Direct anterior left total hip arthroplasty. MMODL / IJN: [id number] /
[~2022-09-20 05:38] MED LIST changes: +ACETAMINOPHEN TAB 500 MG TAB PO PRN; -LACTATED RINGERS 1,000 ML IV SCH; -LIDOCAINE 1% (10MG/ML) FOR IV START INTRADERMA PRN; +MELOXICAM 7.5 MG TAB PO PRN; -ONDANSETRON 4 MG/2 ML VIAL IVP PRN; -PROPOFOL 10 MG/ML 20 ML VIAL IV ONE; +TRANEXAMIC 1,000 MG/100ML-NACL 1,000 MG in SALINE 1 100ML.BAG IVPB PRN; +ceFAZolin 3 GM in SODIUM CHLORIDE 0.9% 100 ML IVPB PRN
[2022-09-20] MEDS ORDERED: LACTATED RINGERS 1,000 ML IV SCH (05:50)
[2022-09-20] MEDS ORDERED: ONDANSETRON 4 MG/2 ML VIAL IVP ONE (05:50)
[2022-09-20] MEDS ORDERED: droPERidol 5 MG/2 ML VIAL IVP PRN (05:50)
[2022-09-20] MEDS ORDERED: LIDOCAINE 1% (10MG/ML) FOR IV START INTRADERMA PRN (05:50)
[2022-09-20] MEDS ORDERED: DEXAMETHASONE SOD PHOSPHATE 4 MG/ML 1 ML VIAL IV ONE (05:50)
[2022-09-20 06:39] LABS: Glucose,Whole Blood 90 mg/dL (70-110)
[2022-09-20] MEDS ORDERED: MIDAZOLAM 2 MG/2 ML VIAL IVP ONE (07:01)
[2022-09-20] MEDS ORDERED: fentaNYL (PF) 50 MCG/ML 2 ML AMP IVP ONE (07:01)
[2022-09-20] MEDS ORDERED: PHENYLEPHRINE-0.9% NACL SYG 1,000 MCG/10 ML SYRINGE ONE (07:24)
[2022-09-20] MEDS ORDERED: LIDOCAINE 2% INJ 20 MG/ML (2 ML VIAL) ONE (07:24)
[2022-09-20] MEDS ORDERED: NEOSTIGMINE 1 MG/ML 10 ML VIAL ONE (07:24)
[2022-09-20] MEDS ORDERED: ROCURONIUM 10 MG/ML (5 ML VIAL) IV ONE (07:24)
[2022-09-20] MEDS ORDERED: SUCCINYLCHOLINE CHLORIDE 200 MG/10 ML VIAL IV ONE (07:24)
[2022-09-20] MEDS ORDERED: GLYCOPYRROLATE 0.2 MG/ML 2 ML VIAL ONE (07:24)
[2022-09-20] MEDS ORDERED: TRANEXAMIC 1,000 MG/100ML-NACL PREMIX BAG ONE (07:24)
[2022-09-20] MEDS ORDERED: fentaNYL (PF) 50 MCG/ML 2 ML AMP ONE (07:24)
[2022-09-20] MEDS ORDERED: ROPIVACAINE 5 MG/ML 30 ML VIAL ONE (07:24)
[2022-09-20] MEDS ORDERED: PROPOFOL 10 MG/ML 20 ML VIAL IV ONE (07:24)
[2022-09-20] MEDS ORDERED: HYDROmorphone (PF) 1 MG/ML ONE (07:24)
[2022-09-20] MEDS ORDERED: ceFAZolin 1,000 MG in SODIUM CHLORIDE 0.9% 1,000 ML IRRIGATION ONE (08:13)
[2022-09-20] MEDS ORDERED: HYDROmorphone 0.5 MG/0.5 ML SYRINGE IVP PRN ×2 (09:17)
[2022-09-20] MEDS ORDERED: LACTATED RINGERS 1,000 ML IV ONE (09:17)
[2022-09-20] MEDS ORDERED: HYDROcodone/APAP 7.5-325MG 1 EACH TAB PO PRN (09:17)
[2022-09-20] MEDS ORDERED: NALOXONE 0.4 MG/ML 1 ML VIAL IV PRN (09:17)
[2022-09-20] MEDS ORDERED: ONDANSETRON 4 MG/2 ML VIAL IVP PRN (09:17)
[2022-09-20] MEDS ORDERED: HYDROmorphone 1 MG/ML 1 ML SYRINGE IVP PRN (09:17)
[2022-09-20] MEDS ORDERED: HYDROcodone/APAP 5-325MG 1 EACH TAB PO PRN (09:17)
--- NOTE | 2022-09-20 09:17 | P.OP ---
Date of Procedure: 09/20/22 Preoperative Diagnosis: Left hip osteoarthritis Postoperative Diagnosis: Left hip osteoarthritis Procedure(s) Performed: Direct anterior left total hip arthroplasty Implants: 1. Depuy Corail 135 standard collar KA size 13 press-fit femoral stem 2. Depuy pinnacle 56 mm press-fit acetabular shell 3. Depuy pinnacle +4 neutral polyethylene acetabular liner 36 mm ID 56 mm OD 4. Biolox delta ceramic femoral head +1.5 36 mm Anesthesia: GETA, regional (erector spinae block) Surgeon: Duncan Duran Wire Bender #1: Jose David Malin Estimated Blood Loss (ml): 60 Pathology: none sent Condition: stable Disposition: PACU Indications for Procedure: 62-year-old gentleman seen with symptomatic left hip osteoarthritis. After having treatment options discussed, he elected to proceed with direct anterior left total hip arthroplasty. Operative Findings: See description of procedure Description of Procedure: The patient was taken to the operative suite. Patient underwent a general anesthetic by the department of anesthesia. Patient was then transferred to the [place] table. Patient was given preoperative IV antibiotics and TXA. Both lower extremities were placed in standard leg spars. The hip was then prepped and draped in the normal sterile orthopedic fashion. A standard anterior incision was made beginning 3 cm lateral and 1 cm distal to the ASIS extending 10 cm. Dissection was then carried down through the subcutaneous soft tissues down to the fascia overlying the tensor fascia quincy. An incision was now made through the fascia. Careful dissection was taken down exposing the tensor fascia quincy muscle. A Cobra retractor was now placed along the medial femoral neck and a second one along the lateral femoral neck. The venous circumflex vessels were now identified, cauterized and clipped. We identified the anterior hip capsule. An incision was made through the hip capsule along the lateral border. I performed a partial anterior capsulectomy. Retractors were now placed around the femoral neck itself. A femoral neck cut was now made with a sagittal saw. It was completed with an osteotome at the lateral neck area. The femoral head was now removed without difficulty. The extremity was now rotated to 60 of external rotation. It was locked in position. Residual labrum was now debrided out. Serial reaming was performed of the acetabulum while Rob ALBA assisted holding an anterior retractor for exposure. Once we reached the appropriate size and a trial was position and fit nicely. The appropriate size was now chosen opened and made available. It was introduced into the acetabulum without difficulty. The C-arm/fluoroscopy was now brought into the operative field. We made sure we had a true AP pelvic view. We now under direct C- arm/fluoroscopy introduced into the acetabular component with appropriate version and inclination. I held the cup in appropriate position well Rob ALBA used a mallet to seat the acetabular component. I noted the component now to be well seated and stable. Acetabular cup introduce her was removed. The C-arm was pulled back. An appropriate liner was introduced and clicked into position. It was felt to be stable. At this point retractors were removed. The extremity was now placed into 140 external rotation with no traction. The leg was now dropped to the ground and adducted. Appropriate retractors were now positioned along the proximal femur. We also placed our femoral look into position. Additional capsular releasing was performed to gain access to the proximal femur. We now used a box osteotome. A canal finder was now utilized. Serial broaching was now performed with the assistance of Rob ALBA tapping the broaches down with a mallet while held the broach in appropriate rotation and position. This was done until we reached the appropriate size with good overall rotational stability. Appropriate calcar planing was performed. A trial head/neck was placed into position. The hip was now reduced. The C- arm/fluoroscopy was brought back into the operative field. I obtained an AP pelvis was demonstrated adequate leg length alignment. The trial components appeared adequately sized and positioned. The C-arm/fluoroscopy was pulled back. Retractors were repositioned and the hip was dislocated. The leg was again taken down to the ground and adducted. Appropriate retractors were repositioned as well as the femoral hook. All trial components were removed. The femoral implant was opened along with the femoral head. The femoral implant was introduced on the appropriate handle into our pre-broached area. I held the component position well Rob ALBA used a mallet to seat the femoral component. The femoral component was now noted to be well seated and stable.. The femoral head was introduced with good positioning and fixation noted. Retractors were now removed. The hip was now reduced. There appeared be good positioning of the hip confirmed on intraoperative fluoroscopy. Spot films were obtained to document this. A second gram of TXA was given. The deep and superficial soft tissues were infiltrated with local analgesic. Bipolar cautery had been utilized intermittently through the procedure for hemostasis. The wound was irrigated copiously with pulse lavage mechanical irrigation. The fascia was repaired with Vicryl suture. The subcutaneous soft tissues were repaired in layers with Vicryl suture. The skin was approximated with pernio/Dermabond. Sterile dressings were applied. Patient was then awakened, tr ansferred to a bed and taken to recovery in stable condition. Rob ALBA assisted with the complex procedure.
--- NOTE | 2022-09-20 09:31 | FL ---
Intraoperative/procedural fluoroscopic services were provided. Total fluoroscopy time is 9 seconds wi th a total of 2 submitted images to PACS. Please see the operative/procedural note for further detail s. DAP: 0.6683 mGym2
[2022-09-20 09:42] VITALS: TEMP 98
[2022-09-20] MEDS: HYDROmorphone 0.5 MG/0.5 ML SYRINGE IVP PRN ×4 (09:48→10:23)
[2022-09-20 09:54] VITALS: RESP 16
--- NOTE | 2022-09-20 10:46 | P.ANPRN ---
Procedure Note - Anesthesia - Nerve Block Performed Left Antonio Single Time Out Performed: Yes ([id number]) Date of Procedure: 09/20/22 Procedure Start Time: : Procedure Stop Time: Location of Patient: PreOp Indication: Acute Post-Operative Pain, Requested by Surgeon Specifically requested for management of pain by DrMehrdad: Duncan Duran Sedation Type: Sedate with meaningful contact maintained Preparation: Sterile Prep Position: Supine Catheter: None Needle Types: Pajunk Needle Gauge: 21 Ultrasound used to visualize needle placement: Yes Ultrasound used to observe medication spread: Yes Injectate: 0.5% Ropivacaine (see comment for volume) (30cc) Blood Aspirated: No Pain Paresthesia on Injection Noted: No Resistance on Injection: Normal Image Stored and Saved: Yes Events: Uneventful and Well Tolerated
[2022-09-20] MEDS ORDERED: ceFAZolin 3 GM in SODIUM CHLORIDE 0.9% 100 ML IVPB ONE (11:30)
[2022-09-20 12:08] VITALS: BP 118/77; PULSE 75
== END 2022-09-20 13:37 | disposition home health service (06) ==
LOC: OR 05:38
PROVIDERS: ATTEND Orthopaedic Surgery
DX: M16.12 Unilateral primary osteoarthritis, left hip (principal); G89.18 Other acute postprocedural pain; I10 Essential (primary) hypertension; E03.9 Hypothyroidism, unspecified; E78.5 Hyperlipidemia, unspecified; K21.9 Gastro-esophageal reflux disease without esophagitis; E66.9 Obesity, unspecified; Z68.39 Body mass index [BMI] 39.0-39.9, adult; Z79.1 Long term (current) use of non-steroidal anti-inflammatories (NSAID); Z79.890 Hormone replacement therapy; Z79.899 Other long term (current) drug therapy
CPT/HCPCS: 27130; 97530; 97161; 64447; 86900; 86901; 86850; 73501; C1776; J2250; J0330; J1100; J2710; J0690 ×2; J2405; J3010; J1170 ×2; J2795; J2704; J2001; J2371

== ENCOUNTER → 2023-04-02 | Outpatient (CLI) | payer BC ==
--- NOTE | 2023-04-03 11:36 | MR ---
EXAMINATION TYPE: MR lumbar spine wo con DATE OF EXAM: 04/02/2023 COMPARISON: None HISTORY: Low back pain into edmar buttocks and extremities CONTRAST: 0 mL intravenous Gadavist. TECHNIQUE: Multiplanar, multisequence images of the lumbar spine were acquired. FINDINGS: Cord terminates at the L1 level. Degenerative disc changes with mild narrowing of disc hei ght and disc desiccation are present throughout the lumbar spine. L5-S1: Right paracentral broad-based disc bulge is present. No thecal sac contact is evident. No spin al canal stenosis. Facet hypertrophy with ligamentum flavum laxity is present. There is moderate to severe foraminal stenosis greater on the right. L4-L5: Broad-based disc bulge is present. No thecal sac compression is evident. Facet hypertrophy is present. Congenitally short pedicles are present. Moderate to severe bilateral foraminal stenosis pre sent, greater on the left. Congenital Spinal canal narrowing appears to be present L3-L4: There is a small central protrusion with mild anterior thecal sac contact. No AP spinal canal stenosis present. Severe left foraminal stenosis is present. Correlate with left L4 radicular symptom s. L2-L3: There is a large right paracentral disc herniation with moderate anterior thecal sac compressi on. AP spinal canal stenosis is present. Some mild canal narrowing is present. Facet hypertrophy and ligamentum flavum laxity is present. Small spur may be on the left facet. Posterior lateral thecal sa c compression is evident. Neural foramen appear patent. L1-L2: No significant disc bulge or disc herniation. No spinal canal stenosis. No foraminal stenosi s. T12-L1: No significant disc bulge or disc herniation. No spinal canal stenosis. No foraminal stenos is. IMPRESSION: 1. Moderately large right paracentral disc herniation L2-3 with moderate anterior thecal sac compress ion. No spinal canal stenosis is present. 2. Broad-based disc bulge L4-5 moderate anterior thecal sac compression. Some congenital spinal canal stenosis may be present. 3. Right paracentral disc bulging L5-S1. No thecal sac compression. 4. Multilevel severe foraminal stenosis including right L5-S1, left L4-5 left L3-4. Correlate for the patient's radicular symptoms.
== END | disposition home or self-care (01) ==
LOC: RADMRIMAIN 07:16
PROVIDERS: ATTEND Orthopaedic Surgery
DX: M48.061 Spinal stenosis, lumbar region without neurogenic claudication (principal); M99.73 Connective tissue and disc stenosis of intervertebral foramina of lumbar region; M51.27 Other intervertebral disc displacement, lumbosacral region
CPT/HCPCS: 72148

== ENCOUNTER → 2023-05-13 | Outpatient (CLI) | payer BC ==
--- NOTE | 2023-05-15 16:34 | CT ---
EXAMINATION TYPE: CT lumbar spine wo con CT DLP: 1683 mGycm, Automated exposure control for dose reduction was used. DATE OF EXAM: 05/13/2023 11:26 AM COMPARISON: 01/01/2016, 04/02/2023. CLINICAL INDICATION:Male, 62 years old with history of M47.816 SPONDYLOSIS; PHH, lower back pain and down both legs TECHNIQUE: Multiple axial images were obtained from the midportion of T11 through the sacroiliac jesenia nts. Soft tissue and bone windows in coronal and sagittal planes were obtained and reviewed. Contrast used: (None, if empty). Oral contrast used: (None, if empty). FINDINGS: Alignment: There are 5 lumbar type vertebral bodies within normal alignment. Bone: No evidence of fracture is identified. Multilevel degeneration changes with osteophyte formati on, disc space narrowing, vacuum disc phenomenon and facet joint arthropathy. Few scattered Schmorl's nodes are present. Discs: T12-L1: No spinal canal or neural foraminal stenosis is identified. L1-L2: No spinal canal or neural foraminal stenosis is identified. L2-L3: There remains a large disc protrusion with severe spinal canal stenosis. The neural foramen ar e patent with mild facet arthropathy. Abundance of epidural fat at this level. L3-L4: Abundance of epidural fat at this level resulted in narrowed thecal sac with moderate to sever e narrowing. Severe bilateral neural foraminal stenosis secondary to severe facet arthropathy. L4-L5: Abundance of epidural fat at this level resulted in narrowed thecal sac with moderate to sever e narrowing. Severe bilateral neural foraminal stenosis secondary to severe facet arthropathy. L5-S1: Abundance of epidural fat at this level resulted in narrowed thecal sac with moderate to sever e narrowing. Severe bilateral neural foraminal stenosis secondary to severe facet arthropathy. Other: None IMPRESSION: 1. L2-L3 disc herniation with moderate to severe spinal canal stenosis suggested. Findings similar t o MRI 04/02/2023 given differences in technique. 2. Epidural lipomatosis extending from L2 to L5 results and moderate to severe narrowing of the spin al canal. 3. Moderate to severe degeneration changes of the spine extending from L1 to L5. 4. Severe bilateral neural foraminal stenosis L3-L4, L4-5 and L5-S1 1 secondary to facet joint arthr opathy and osteophyte formation. Tiny similar to prior MRI.
== END | disposition home or self-care (01) ==
LOC: RADCTMAIN 09:57
PROVIDERS: ATTEND Orthopaedic Surgery
DX: M47.816 Spondylosis without myelopathy or radiculopathy, lumbar region (principal); M48.061 Spinal stenosis, lumbar region without neurogenic claudication; M51.36 Other intervertebral disc degeneration, lumbar region; M99.73 Connective tissue and disc stenosis of intervertebral foramina of lumbar region; M25.78 Osteophyte, vertebrae
CPT/HCPCS: 72131

== ENCOUNTER → 2023-05-18 | Outpatient (CLI) | payer BC ==
[2023-05-18 08:48] VITALS: BP 160/98; PULSE 89; RESP 15; TEMP 98.9
--- NOTE | 2023-05-18 12:40 | P.PAINPG ---
PQRS Measure Charge Sheet Comment: HISTORY OF PRESENT ILLNESS: A 62 yr old male w at side as a referral from Dr Mendez presents today w severe and chronic LBP x 3 yrs secondary to DDD, spondylosis and facet arthropathy without myelopathy for evaluation. Pt states pain level is provoked at 7 /10 in intensity, constant, localized in the lumbar spine, predominantly axial, clinically in character w occasional shooting pain towards the back of the calfs. Pain is provoked by walking for periods > 15 min. Pain is alleviated by PT x 4 wks which ended in Mar 2023, ice, medications (ASA, Tyl), repositioning and rest. Oswestry axial pain score at 28. PMH: OA, Hyperlipidemia, HTN, Hypothyroid Disorder PSH: Colonoscopy (2021), L Total Hip Arthroplasty (2022), Hernia Repair, L Knee Arthroscopy x3, L Knee Replacement, R Knee Arthroscopy x2, L RCT Surgery SH: Negative x3 FH: Fa- Prostate/ Colon CA. Sis- Colon CA. All: See list Meds: See list REVIEW OF ORGAN SYSTEMS: CONSTITUTIONAL: No fevers or chills. No recent weight loss. NEUROLOGICAL: + numbness and tingling along the distal extremities. No seizure disorders or headaches. MUSCULOSKELETAL: + pain PSYCHIATRIC: Denies current depression or suicidal thoughts. Physical Examinations : Constitutional : Cooperative , not in acute distress . Neurologic : Cranial nerve II to XII intact. No focal neurological deficits. Psychiatric : alert & oriented x 3. Matching mood & appropriate affect. Judgment & insight intact. Musculoskeletal : Cervical Spine Motor strength in the deltoid and biceps: Normal right side. Normal Left side Motor strength biceps and the wrist extensors: Normal right side . Normal left side Motor strength in the triceps muscle: Normal right side. Normal left side Deep tendon reflexes: Normal at the biceps. Normal at Brachioradialis. Normal at triceps Vertebral body tenderness to deep palpation over Cervical facet loading test: positive bilaterally Spurling test: positive bilaterally Neck distraction test: positive bilaterally Benjamin sign: positive bilaterally Lumbar spine Motor strength lower extremities ,thigh and legs 5/5 Right side , 5/5 Left side Deep tendon reflexes : Normal Knee Jerk. Normal Ankle Jerk Vertebral body tenderness over L2 Mayberry Test positive L2-L3 BL Lumbar facet Loading Test: positive Right / positive Left Range of motion of the lumbar spine Flexion 30 degrees, extension 10 degrees Straight Leg Raise test: Left/ Right positive at degree Janet test: positive right / positive left. Severe tenderness over the Sacroiliac joint on the Right / Left sides Gaenslen test: positive bilaterally Seated flexion test: positive bilaterally. Sacral spine : Severe tenderness over the Sacroiliac joint: right side / left side Range of motion: Flexion of the lumbar spine <60 degrees Range of motion: Extension of the lumbar spine <20 degrees Gaenslen's Test positive Janet test: positive right side / left side Thigh Thrust Test Sacral Thrust Test Imaging: MRI non contrast of the lumbar spine reviewed Assessment/ Plan : Lumbar DDD Recommendation of JOHN L2-L3 #1. May need a series of injections for optimal pain relief. Risks, benefits of procedure discussed and patient verbalized understanding. Admits to anti- coagulant use or medical history of diabetes. Protocol for discontinuation/ continuation of medications frandy procedure discussed. All questions answered. I have spent greater than 30 minutes on patient care today. Dr Leon was available by phone for the evaluation of this patient. The time was used to review the medical records including relevant urine studies and Prescription history (MAPs), review of the available imaging, evaluation and examination of the patient, coordination of care with the medical staff and if applicable referring physicians, as well as creation of the medical record PQRS Narrative: Smoking Status Never smoker Home Medications: Ambulatory Orders Atorvastatin [Lipitor] 20 mg PO DAILY 03/04/15 Levothyroxine Sodium [Synthroid] 125 mcg PO QAM 03/04/15 atenoloL [Tenormin] 50 mg PO QAM 03/04/15 Benazepril HCl 20 mg PO BID 04/06/16 hydroCHLOROthiazide 25 mg PO DAILY 04/06/16 Meloxicam 7.5 mg PO BID 03/31/18 Acetaminophen Tab [Tylenol Tab] 1,000 mg PO DAILY PRN 02/19/22 Aspirin/Sod Bicarb/Citric Acid [Yamileth-[place] Original Tab Eff] 1 each PO DAILY 02/19/22 Semaglutide [Ozempic] 2 mg SQ WEEKLY 02/19/22 Aspirin [Adult Low Dose Aspirin EC] 81 mg PO BID #60 tab 09/20/22 HYDROcodone/APAP 7.5-325MG [[place] 7.5] 1 each PO Q4HR PRN #42 tab 09/20/22 Sennosides/Docusate Sodium [Senna-S 8.6-50 mg Tablet] 2 each PO DAILY PRN #30 tablet 09/20/22 Controlled Substance Measures - Controlled Substance Measures Is patient prescribed a controlled substance at discharge?: No
== END ==
LOC: PNWHC3 07:46
PROVIDERS: ATTEND Specialist
DX: M48.062 Spinal stenosis, lumbar region with neurogenic claudication (principal); M51.36 Other intervertebral disc degeneration, lumbar region; M19.90 Unspecified osteoarthritis, unspecified site; E78.5 Hyperlipidemia, unspecified; I10 Essential (primary) hypertension; E03.9 Hypothyroidism, unspecified; Z79.82 Long term (current) use of aspirin; Z79.899 Other long term (current) drug therapy; Z79.890 Hormone replacement therapy
CPT/HCPCS: 99211

== ENCOUNTER 2023-06-09 07:33 | Day surgery (SDC) | payer BC ==
[~2023-06-09 07:33] MED LIST changes: -ACETAMINOPHEN TAB 500 MG TAB PO PRN; +LACTATED RINGERS 1,000 ML IV SCH; -MELOXICAM 7.5 MG TAB PO PRN; -TRANEXAMIC 1,000 MG/100ML-NACL 1,000 MG in SALINE 1 100ML.BAG IVPB PRN; -ceFAZolin 3 GM in SODIUM CHLORIDE 0.9% 100 ML IVPB PRN
[2023-06-09 08:57] VITALS: TEMP 97.3
[2023-06-09] MEDS ORDERED: IOPAMIDOL M300 15ML VIAL ONE (09:24)
[2023-06-09] MEDS ORDERED: ROPIVACAINE 5MG/ML 20ML VIAL ONE (09:24)
[2023-06-09] MEDS ORDERED: methylPREDNISolone ACETATE 80 MG/ML 1 ML VIAL ONE (09:24)
--- NOTE | 2023-06-09 09:51 | P.PCN ---
Description of Procedure: PREOPERATIVE DIAGNOSIS: 1- Lumbar Degenerative Disc Diseases 2-Lumbar spondylosis with Facet arthropathy without myelopathy. 3-lumbar spinal stenosis POSTOPERATIVE DIAGNOSIS: 1-lumbar degenerative disc disease. 2-lumbar spondylosis with facet arthropathy without myelopathy. 3-lumbar spinal stenosis. PROCEDURE Injection of radio contrast material into L2-3 interspace, interpretation of epidurogram, injection of steroid at L2-3 epidural space under fluoroscopic guidance. ANESTHESIA: Lidocaine 1% subcutaneously. In OR continuous pulse ox, EKG, blood pressure and verbal communication was maintained with the patient. EBL: Minimal PROCEDURE INDICATION: Before the procedure were discussed with the patient detailed procedure, alternatives, complications including infection, bleeding, nerve damage, paralysis all of which could be permanent. Patient understands and all questions were answered. PROCEDURE DESCRIPTION : After getting consent, patient in OR in prone position. Back was prepped with chlorhexidine and draped in sterile fashion. After injecting 10 mL of 1% lidocaine subcutaneously, a 20-gauge Tuohy needle was introduced at L2-3 interspace with loss of resistance technique using a syringe filled with air. Negative CSF, negative blood, negative paresthesia. Needle position was confirmed with AP and lateral view of the fluoroscope. After repeat negative aspiration 2 mL of Omnipaque 200 water soluble contrast was injected. Contrast was noted in the epidural space. No contrast was noted into intrathecal or intravascular space. After repeat negative aspiration 6 mL solution was injected intermittently which consists of 5 mL of preservative-free normal saline mixed with 1 mL of 80 mg Depo-Medrol. Needle was withdrawn intact. Skin was cleansed and Band-Aids was applied. DISPOSITION / PLANS: The patient tolerated the procedure well. No complication. The patient was placed in a supine position and transferred to the recovery area in a stable condition for observation. There was no evidence of lower extremity motor or sensory deficit after the procedure. Patient was discharged from the recovery room after meeting discharge criteria. Home discharge instructions were given to the patient by the staff. The patient was reexamined prior to discharge. The patient will schedule a follow up in the clinic in 2-4 weeks.
--- NOTE | 2023-06-09 09:54 | FL ---
Fluoroscopy History: BACK PAIN LOW BACK PAIN, 15SEC FL TIME, DAP .[id number]
[2023-06-09 10:19] VITALS: BP 114/75; PULSE 62; RESP 15
== END 2023-06-09 10:11 | disposition home or self-care (01) ==
LOC: ORPAIN 07:33
PROVIDERS: ATTEND Pain Medicine Interventional Pain Medicine
DX: M51.36 Other intervertebral disc degeneration, lumbar region (principal); M47.816 Spondylosis without myelopathy or radiculopathy, lumbar region; M48.061 Spinal stenosis, lumbar region without neurogenic claudication; Z79.82 Long term (current) use of aspirin; Z79.1 Long term (current) use of non-steroidal anti-inflammatories (NSAID)
CPT/HCPCS: 62323; J1040; Q9967; J2795

== ENCOUNTER → 2023-06-22 | Outpatient (CLI) | payer BC ==
[2023-06-22 14:08] VITALS: BP 155/92; PULSE 101; RESP 15; TEMP 98.5
--- NOTE | 2023-06-22 15:01 | P.PAINPG ---
Objective - Vital Signs Vital signs: Intake & Output 06/21/23 06/22/23 06/22/23 18:59 06:59 18:59 Weight 127.006 kg PQRS Measure Charge Sheet Comment: HISTORY OF PRESENT ILLNESS: A 62 yr old male w at side presents today w severe and chronic LBP x 3 yrs secondary to DDD, spondylosis and facet arthropathy without myelopathy for evaluation s/p JOHN L2-L3 #1. Pt states he experienced 60% pain relief x 2 wks s/p procedure. Pt states pain level is provoked at 4 /10 in intensity, constant, localized in the lumbar spine, predominantly axial, clinically in character w occasional shooting pain towards the back of the calfs. Pain is provoked by walking for periods > 15 min. Pain is alleviated by PT x 4 wks which ended in Mar 2023, ice, medications (ASA, Tyl), repositioning and rest. Oswestry axial pain score at 26. Interventional procedures include JOHN L2-L3 x1 Medications include ASA, Tyl REVIEW OF ORGAN SYSTEMS: CONSTITUTIONAL: No fevers or chills. No recent weight loss. NEUROLOGICAL: + numbness and tingling along the distal extremities. No seizure disorders or headaches. MUSCULOSKELETAL: + pain PSYCHIATRIC: Denies current depression or suicidal thoughts. Physical Examinations : Constitutional : Cooperative , not in acute distress . Neurologic : Cranial nerve II to XII intact. No focal neurological deficits. Psychiatric : alert & oriented x 3. Matching mood & appropriate affect. Judgment & insight intact. Musculoskeletal : Cervical Spine Motor strength in the deltoid and biceps: Normal right side. Normal Left side Motor strength biceps and the wrist extensors: Normal right side . Normal left side Motor strength in the triceps muscle: Normal right side. Normal left side Deep tendon reflexes: Normal at the biceps. Normal at Brachioradialis. Normal at triceps Vertebral body tenderness to deep palpation over Cervical facet loading test: positive bilaterally Spurling test: positive bilaterally Neck distraction test: positive bilaterally Benjamin sign: positive bilaterally Lumbar spine Motor strength lower extremities ,thigh and legs 5/5 Right side , 5/5 Left side Deep tendon reflexes : Normal Knee Jerk. Normal Ankle Jerk Vertebral body tenderness over L2 Mayberry Test positive L2-L3 BL Lumbar facet Loading Test: positive Right / positive Left Range of motion of the lumbar spine Flexion 30 degrees, extension 10 degrees Straight Leg Raise test: Left/ Right positive at degree Janet test: positive right / positive left. Severe tenderness over the Sacroiliac joint on the Right / Left sides Gaenslen test: positive bilaterally Seated flexion test: positive bilaterally. Sacral spine : Severe tenderness over the Sacroiliac joint: right side / left side Range of motion: Flexion of the lumbar spine <60 degrees Range of motion: Extension of the lumbar spine <20 degrees Gaenslen's Test positive Janet test: positive right side / left side Thigh Thrust Test Sacral Thrust Test Imaging: MRI non contrast of the lumbar spine reviewed Assessment/ Plan : Lumbar DDD Recommendation of JOHN L2-L3 #2. May need a series of injections for optimal pain relief. Risks, benefits of procedure discussed and patient verbalized understanding. Tyl #3 #15 days. Use, side effects, adverse reactions, safe storage discussed. Admits to anti- coagulant use or medical history of diabetes. Protocol for discontinuation/ continuation of medications frandy procedure discussed. All questions answered. I have spent greater than 30 minutes on patient care today. Dr Leon was available by phone for the evaluation of this patient. The time was used to review the medical records including relevant urine studies and Prescription history (MAPs), review of the available imaging, evaluation and examination of the patient, coordination of care with the medical staff and if applicable referring physicians, as well as creation of the medical record - Pain Location Bilateral Lower Back Non-Pharmacological Interventions: Inactivity, Position/Reposition Pharmacological Interventions: Scheduled Medication PQRS Narrative: Smoking Status Never smoker Hx Alcohol Use (MH) Yes Home Medications: Ambulatory Orders Atorvastatin [Lipitor] 20 mg PO QAM 03/04/15 Levothyroxine Sodium [Synthroid] 125 mcg PO QAM 03/04/15 atenoloL [Tenormin] 50 mg PO QAM 03/04/15 Benazepril HCl 20 mg PO BID 04/06/16 hydroCHLOROthiazide 25 mg PO QAM 04/06/16 Meloxicam 7.5 mg PO BID 03/31/18 Acetaminophen Tab [Tylenol Tab] 1,000 mg PO DAILY PRN 02/19/22 Aspirin/Sod Bicarb/Citric Acid [Yamileth-[place] Original Tab Eff] 1 each PO QAM 02/19/22 Acetaminophen-Codeine 300-30mg [Tylenol w/codeine #3] 1 tab PO Q4H PRN 3 Days #15 tablet 06/22/23 Controlled Substance Measures - Controlled Substance Measures Is patient prescribed a controlled substance at discharge?: Yes When asked, does pt state using other controlled substances?: No If prescribed controlled substance>3 days was MAPS reviewed?: Prescribed <3 Days
== END | disposition home or self-care (01) ==
LOC: PNWHC3 13:23
PROVIDERS: ATTEND Specialist
DX: M51.36 Other intervertebral disc degeneration, lumbar region (principal)
CPT/HCPCS: 99211

== ENCOUNTER → 2023-07-07 | Outpatient (CLI) | payer BC ==
--- NOTE | 2023-07-07 13:23 | XR ---
EXAMINATION TYPE: XR chest 2V DATE OF EXAM: 07/07/2023 COMPARISON: None INDICATION: Abnormal EKG TECHNIQUE: Frontal and lateral views of the chest are obtained. FINDINGS: The heart size is normal. The pulmonary vasculature is normal. The lungs are clear. There is some mild hyperinflation. Correlate for COPD IMPRESSION: 1. No acute pulmonary process. 2. COPD
--- NOTE | 2023-07-08 07:08 | CA ---
Transthoracic Echo Report Name: Jefferson Sebastian Age: 63 Gender: M : 1960 Exam Date: 07/07/2023 13:42 Exam Location: [place] [facility] Ht (in): 71 Wt (lb): 300 Ordering Physician: Suresh Berg MD Attending/Referring Phys: Yohana Rivera ON LICENSE OF [facility] Director Emergency Department Salima Hussein RDCS Procedure CPT: Indications: R94.31 ABNORMAL EKG Z01.818 ENCOUNTER FOR OTHER ME Cardiac Hx: Technical Quality: Technically difficult study Contrast 1: Definity Total Dose (mL): 2 Contrast 2: Total Dose (mL): MEASUREMENTS (Male / Female) Normal Values 2D ECHO LV Diastolic Diameter PLAX 4.3 cm 4.2 - 5.9 / 3.9 - 5.3 cm LV Systolic Diameter PLAX 2.6 cm IVS Diastolic Thickness 1.7 cm 0.6 - 1.0 / 0.6 - 0.9 cm LVPW Diastolic Thickness 1.4 cm 0.6 - 1.0 / 0.6 - 0.9 cm LV Relative Wall Thickness 0.7 RV Internal Dim ED PLAX 3.8 cm LA Volume 75.8 cm??? 18 - 58 / 22 - 52 cm??? LA Volume Index 28.4 cm???/m??? 16 - 28 cm???/m??? M-MODE Aortic Root Diameter MM 2.9 cm LA Systolic Diameter MM 6.2 cm LA Ao Ratio MM 2.1 DOPPLER AV Peak Velocity 134.4 cm/s AV Peak Gradient 7.2 mmHg AV Mean Velocity 92.4 cm/s AV Mean Gradient 3.8 mmHg AV Velocity Time Integral 26.0 cm LVOT Peak Velocity 117.5 cm/s LVOT Peak Gradient 5.5 mmHg LVOT Velocity Time Integral 30.1 cm MV Area PHT 2.7 cm??? Mitral E Point Velocity 64.7 cm/s Mitral A Point Velocity 70.8 cm/s Mitral E to A Ratio 0.9 MV Deceleration Time 283.8 ms MV E' Velocity 5.8 cm/s Mitral E to MV E' Ratio 11.2 TR Peak Velocity 188.0 cm/s TR Peak Gradient 14.1 mmHg Right Ventricular Systolic Press 17.9 mmHg FINDINGS Left Ventricle Severely increased left ventricular wall thickness. Left ventricular cavity size normal. Normal left ventricular systolic function with no obvious regional wall motion abnormalities. Left ventricular ejection fraction is estimated at 55-60 %. Grade 1 diastolic dysfunction. Right Ventricle Mild right ventricular dilatation. Right ventricular systolic pressure within normal limits. Right Atrium Right atrium not well visualized. Left Atrium Moderately increased left atrial volume. Mildly increased left atrial area. Mitral Valve Structurally normal mitral valve. No mitral stenosis, regurgitation or prolapse. Aortic Valve Poorly visualized aortic valve. The aortic valve is thickened and calcified Tricuspid Valve Structurally normal tricuspid valve. Mild tricuspid regurgitation. Pulmonic Valve Structurally normal pulmonic valve. Trace pulmonic regurgitation. Pericardium No pericardial effusion. Aorta Normal size aortic root and proximal ascending aorta. CONCLUSIONS Extremely difficult study for interpretation was poorly visualized endocardial an intracardiac valves Normal LV systolic function Poorly visualized aortic valve. The aortic valve appears to be thickened and calcified. Poorly visualized mitral valve as well as Mild RV enlargement Normal pulmonary artery systolic pressure Previewed by: Dr. Lalo Cruz MD (Electronically Signed) Final Date: 08 Jul 2023 07:07
== END | disposition home or self-care (01) ==
LOC: RADECHMAIN 13:08
PROVIDERS: ATTEND Family Medicine
DX: Z01.810 Encounter for preprocedural cardiovascular examination (principal); J44.9 Chronic obstructive pulmonary disease, unspecified; I51.7 Cardiomegaly; R94.31 Abnormal electrocardiogram [ECG] [EKG]
CPT/HCPCS: 71046; 93306

== ENCOUNTER → 2023-07-13 | Outpatient (CLI) | payer BC | END | disposition home or self-care (01) | LOC: LABWHC1 07:09 | PROVIDERS: ATTEND Orthopaedic Surgery | DX: Z01.812 Encounter for preprocedural laboratory examination (principal); Z22.322 Carrier or suspected carrier of Methicillin resistant Staphylococcus aureus; M48.062 Spinal stenosis, lumbar region with neurogenic claudication; M51.26 Other intervertebral disc displacement, lumbar region | CPT/HCPCS: 86850; 86900; 86901; 87070 ==

== ENCOUNTER → 2023-07-14 | Outpatient (CLI) | payer BC ==
[~2023-07-14] MED LIST changes: -LACTATED RINGERS 1,000 ML IV SCH; +REGADENOSON 0.4 MG/5 ML SYRINGE IV PRN
--- NOTE | 2023-07-14 12:29 | NM ---
EXAMINATION TYPE: NM stress lexiscan cardiolite DATE OF EXAM: 07/14/2023 COMPARISON: NONE CLINICAL INDICATION: Male, 63 years old with history of R94.31 ABNORMAL EKG; TECHNIQUE: After the intravenous administration of 10.8 mCi Tc 99m Sestamibi - Cardiolite resting SP ECT images acquired 90 minutes post injection. The patient received 0.4mg Lexiscan, 26.9 mCi Tc 99m Sestamibi - Stress images obtained [address] injection FINDINGS: Review of stress and rest SPECT images demonstrates small to moderate fixed defect mid to apical sept al wall more pronounced on the rest suggesting attenuation artifact. No discrete reversibility is see n. Gated analysis shows normal wall motion but with borderline estimated left ventricular ejection fr action of 53 %. TID is calculated at 1.05, upper limits of normal. IMPRESSION: 1. Areas of attenuation artifact. No discrete reversibility is seen. 2. Estimated LVEF is borderline diminished at 53%.
--- NOTE | 2023-07-15 19:20 | CA ---
Lexiscan Nuclear Stress Test Report Name: Jefferson Sebastian Exam Date: 07/14/2023 09:53 Exam Location: [place] [facility] Ht (in): 71 Wt (lb): 320 BSA: 2.58 Ordering Phys: Sivakumar Rodriguez MD Referring Phys: Yohana Rivera Technologist: Kd Cardoso Age: 63 Gender: M : 1960 Procedure CPT: Indications: R94.31 ABNORMAL EKG ICD-10 Codes: Patient History: HTN, HYPERCHOLESTEROLEMIA, FAMILY HX OF HEART DISEASE Medications: MELOXICAM, ATORVASTATIN, ATENOLOL, HZTZ, LEVOTHYROXINE, BENAZEPRAL Meds past 24 hrs: Pretest Chest Pain: STRESS TEST Lexiscan Protocol Exercise Duration (min:sec): 02:[address] Depressions (mm): Angina Score: Gomez Score: Resting HR (bpm): 57 Peak HR (bpm): 72 Resting BP (mmHg): 163 / 92 Peak BP (mmHg): 166 / 89 MPHR: 158 Target HR: 134 % MPHR: 46 METS: 1.0 Total Dose: Peak Dose: Atropine: Double Product: 34371 BP Response: Stress Termination: INFUSION COMPLETE Stress Symptoms: NO SYMPTOMS Stress Summary: ECG ANALYSIS Resting ECG: Stress ECG: CONCLUSIONS Nondiagnostic stress test Dr. Lalo Cruz MD (Electronically Signed) Final Date: 15 Jul 2023 19:19
== END | disposition home or self-care (01) ==
LOC: RADNMMAIN 07:37
PROVIDERS: ATTEND Family Medicine
DX: R94.31 Abnormal electrocardiogram [ECG] [EKG] (principal)
CPT/HCPCS: 93017; 78452; A9500; J2785

== ENCOUNTER 2023-07-21 09:41 | Day surgery (SDC) | payer BC ==
--- NOTE | 2023-07-20 20:39 | P.HPOR ---
History of Present Illness H&P Date: 06/29/23 .D:Date: 06/29/23 : 11:08am .T:Title: [facility] HISTORY AND PHYSICAL Allergies: NKDA Age: 62 year Height: 5'10" Weight: 278 lbs BP:122/72 BMI: 39.89 kg/m2 Occupation: merchandise supervisor VAS: 5 CC: CC: Re-check on low back pain HISTORY: Mr. Sebastian presents to the office today, 06/29/23, for re-evaluation of low back pain after receiving L2-3 epidural steroid injections at pain management. The patient reports experiencing approximately 75% relief for 1 to 2 weeks following the time of injection. He notes a gradual return of low back pain approximately 2 weeks after receiving the injection. He notes dull ache-like pain throughout the low back that radiates down into the bilateral lower extrem ities wit a shooting quality. He notes mild numbness and tingling throughout the lower extremities. He states his symptoms worsen after prolonged walling or standing. He notes he "has not been walking right for approximately 5 years" due to his gradually worsening symptoms. He has trialed all conservative measures listed below with only mild, temporary relief. He is currently taking ... fr relief of his current symptoms. The patient denies any f/c/sob/cp, perineal numbness or tingling, bowel or bladder incontinence/retention. Patient is ambulatoryindependently today. The patients' past social, medical, family, surgical history, as well as review of systems, have been reviewed. Please refer to the Neurosurgery History and Physical form that has been scanned into our electronic medical record system. 16 points review of systems completed and as stated in HPI, all other systems reviewed are negative. PAST TREATMENTS: PAST IMAGING: - Yes TRAUMA RELATED: - No WORK RELATED: - No PT IN LAST 6 MONTHS: - Yes (made symptoms worse) PHYSICIAN DIRECTED HOME EXERCISE PROGRAM: - Yes (no relief) ACTIVITY MODIFICAITON: - Yes MEDICATIONS: - Tylenol ALTERNATIVE INTERVENTIONS (CHIROPRACTIC, ACCUPUNCTURE, MASSAGE, RICE): - Yes (home heat/ice therapies & rest; mild, temporary relief) BRACING: - No INJECTIONS (JOHN, TF, RFA): - Yes (x1 L2-3 JOHN; mild, temporary relief) MEDICAL HISTORY: Past Medical History: Reviewed, see appropriate section of the chart for details. Past Spine Surgical History: None Social History: Reviewed, see appropriate section of the chart for details. Family History: Reviewed, see appropriate section of the chart for details. P1 Current Medications: Rx: ATENOLOL 50MG ORAL Tablet, Ref: 11 Instructions: Take 1 Tablet ORAL DAILY. Rx: ATORVASTATIN CALCIUM 20MG ORAL Tablet, Ref: 11 Instructions: Take 1 Tablet ORAL DAILY. Rx: LEVOTHYROXINE SODIUM 125MCG ORAL Tablet, Ref: 11 Instructions: Take 1 Tablet ORAL DAILY. Rx: meloxicam 7.5 mg tablet Ref: 2 Instructions: TAKE 1 TABLET BY MOUTH TWICE A DAY Rx: benazepriL 20 mg tablet Ref: 0 Instructions: take 1 tablet (20 mg) by oral route 2 times per day Rx: hydroCHLOROthiazide 25 mg tablet Ref: 0 Instructions: take 1 tablet (25 mg) by oral route 2 times per day Rx: TylenoL Ref: 0 Instructions: as directed Rx: celecoxib 200 mg capsule Ref: 0 Rx: Medi-[place] 324 mg effervescent tablet Ref: 0 P1 PHYSICAL EXAM: General: AOX3, NAD, Well hydrate, Well nourished HEENT: No lumps or masses Extremities: No color changes, no pooling INTEGUMENT: Appearance:Normal color and turgor Surgical Incisions: None Hairy Patches: ABSENT Dorsal Skin Dimples: Normal [employer] spots: ABSENT PALPATION: TTP Midline: NO Paracervical: NO Parathoracic: NO Paralumbar: YES SIJ TESTING: TTP (NONE) [place] Finger:- FABER4:- Compression:- | Distraction:- Thigh thrust:- | Hip thrust: - POSTURAL BALANCE: Coronal:BALANCED Sagittal:BALANCED Shoulder height: LEVEL Pelvic Girdle: LEVEL ROM AND APPEARANCE: Neck:UNRESTRICTED Lumbar:RESTRICTED Shoulders: Symmetrical Hips: Symmetrical Knees: Symmetrical Hands: Symmetrical Feet: Symmetrical VASCULAR STATUS: RUE- 2 LUE-2 RLE-2 LLE-2 Edema: NONE NEUROLOGICAL EXAMINATION: Mental Status: Awake, alert, oriented fully with normal attention, concentration and memory. Fluent appropriate speech. CRANIAL NERVES: I: Olfactory not tested. II: Visual acuity normal, no visual field deficit noted with confrontation. III,IV: Normal pupillary reflexes & intact extraocular movements without nystagmus. V,: Intact symmetrical facial sensation. VII: Intact symmetrical facial motor movementVIII: Hearing intact. IX,X: Intact gag, swallow, & normal voice. XI: Sternocleidomastoid, trapezius function intact. XII: Tongue midline with normal movements. TENSIONING: L'HERMITTE'S SIGN NEG SPURLUNG'S SIGN NEG CUBITAL COMPRESSION NEG TINELS AT WRIST NEG SLR/CROSSED SLR NEG MOTOR EXAM (0-5/5, NT) Muscle appearance:Symmetrical, without signs of atrophy or dystrophy UPPER EXTREMITY RIGHT LEFT Shoulder Abduction 5 5 Biceps 5 5 Triceps 5 5 Wrist Extension 5 5 Hand Intrnsics 5 5 Benefits Administrator 5 5 LOWER EXTREMITY RIGHT LEFT Hip Flexion 4 4 Knee Extension 4 4 Knee Flexion 5 5 Dorsiflexion 5 5 Plantarflexion 5 5 EHL 5 5 FHL 5 5 REFLEXES (0-4/2, NT): RIGHT LEFT Bicep 2 2 Brachioradialis 2 2 Tricep 2 2 Patellar 1 2 Achilles 2 2 PATHOLOGICAL REFLEXES: RIGHT LEFT ZENG'S ABSENT ABSENT CLONUS ABSENT ABSENT BABINSKI ABSENT ABSENT Rectal Tone: INTACT SENSATION (0-4, NT): RUE-2LUE-2 RLE-2 LLE-2 Dermatomal deficit: L2-3, L4-5 b/l GAIT AND FUNCTIONAL EVALUATION: -Ambulatory aids - INDEPENDENT -Rombergs test - NEG -Hand and finger dexterity intact bilaterally? YES -Dysdiadochokinesia examination negative bilaterally? YES -Toe heel walk / heel-toe walk intact while maintaining satisfactory balance? NO -Squatting/straightening w/o assistance to a min of 60 degree knee flexion? NO -Single leg stance: ABLE -Trendelenburg sign NEGATIVE B/L IMAGING STUDIES FINDINGS XRAY No new x-rays taken in office today. Please see previous notes. CT N/A MRI N/A IMPRESSION: It was my pleasure to have seen and examined Jefferson. I reviewed the patient's clinical syndrome, physical findings, and imaging studies during the appointment today. It is my impression that the patient has a diagnosis of. 1.L2-3 herniated nucleus pulposus 2. Neurogenic claudication 3. L4-5 spondylosis with stenosis 4. Bilateral lower extremity radiculopathy, right worse than left PLAN: THERAPIES -Cont with home ice therapies as warranted -Cont with supplementation Vit D, Vit C, Ca2+, High protein diet -OK for massage or other alternative treatment modalities as able. If it exacerbates your sx do not continue ACTIVITY -Avoid excessive or heavy BLPPT MEDICATIONS -Take as directed -Cont home medications as directed by your PCP. Check with your PCP for any medication interactions or issues if needed. SURGICAL RECOMMENDATION -L2-3 laminectomy DISCUSSION: -I have discussed treatment options in the form of operative versus non- operative measures. I have discussed surgical intervention in the form of an L2- 3 laminectomy versus L2-3 decompression and fusion. Due to the patient's symptomology I have recommended a less invasive procedure at this time in the form of an L2-3 laminectomy. The patient verbally understands all risks and benefits involved with the procedure and elects to proceed. She will obtain all necessary preoperative clearances prior to surgery. Spine Surgery Risk Review Mr. Sebastian is presenting for evaluation of low back and bilateral lower extremity pain, bilateral lower extremity numbness and tingling right worse than left). It was my pleasure to have seen and examined Mr. Sebastian. In our visit today we have had a chance to go over subjective complaints, physical examination findings and treatments including the natural course history without intervention and various interventional options. The patients imaging demonstrates: [facility]: - Re-reviewed wit the patient today. IMPRESSION: 1. Moderately large right paracentral disc herniation L2-3 with moderate anterior thecal sac compression. No spinal canal stenosis is present. 2. Broad-based disc bulge L4-5 moderate anterior thecal sac compression. Some congenital spinal canal stenosis may be present. 3. Right paracentral disc bulging L5-S1. No thecal sac compression. 4. Multilevel severe foraminal stenosis including right L5-S1, left L4-5 left L3-4. Correlate for the patient's radicular symptoms. XRay Lumbar Multiview (AP, Lateral, Flexion, Extension) with AP pelvis; 5 views taken at [facility] on 02/16/23: - Re-reviewed with the patient today. moderate multilevel spondylitic and degenerative changes with scoliotic curvature to the left. Multilevel diminished disc height. Grade 1 anterolisthesis L4 onto L5. Vertebral body heights are preserved. No acute osseous abnormalities. Pelvis: The visualized sacrum and iliac wings are within normal limits.Left total hip arthroplasty noted. Hardware is intact with no migration. On physical exam, Mr. Sebastian demonstrates: A dull ache-like pain throughout the low back that radiates down into the bilateral lower extremities with a shooting quality. He notes mild numbness and tingling throughout the lower extremities, worse on the right compared to the left. He states his symptoms worsen after prolonged walking or standing. He notes he "has not been walking right for approximately 5 years" due to his gradually worsening symptoms. He reports experiencing severe sleep disturbances related to his ongoing pain and associated symptoms. I have explained to the patient that as their condition progresses it will cause further neurological deficits and eventual paralysis. Based on the patients imaging, physical exam, and the rapid progression and disabling nature of their symptoms, at this time I recommend surgery in the form of a: L2-3 laminectomy. I discussed the risk and benefits of this procedure at length with Mr. Sebastian . The patient agreed to considered pursuing the procedure abovementioned. Prior to surgery, she should follow up with her PCP (Cardio, ID, IM etc) for clearance. Questions were invited and answered, and the patient wishes to proceed as outlined below. Currently, I am recommendin.L2-3 laminectomy 2.Follow up with PCP for surgical clearance 3.Review of surgical risks and benefits as well as an educational packet on the proposed surgical procedure. Risks: All surgical procedures come with inherent risks, including those related to positioning, anesthesia, intraoperative findings, and postoperative complications. It is important to understand that surgery does not come with any guarantee of a successful outcome as complications and adverse events are always possible. The patient was given a handout in office today discussing the surgical procedure and risks associated with the intervention, both of which were discussed with the patient. These risks include but are not limited to the following: * Experiencing same, different or even worse symptoms in back, neck, arms, or legs compared to before surgery. Requiring further surgery or other forms of treatment presently or at some time in the future at same or other levels of the intended spine surgery. On an extreme but fortunately relatively rare basis severe complication such as blindness, stroke, heart attack, temporary and/or permanent nerve injury, paralysis, coma, or may occur, sometimes without known explanation. Surgical complications may include but are not limited to risk of infection, fluid accumulation in the surgical dissection site, including a seroma or hematoma, that requires additional surgery, wound drainage, bleeding, new numbness or weakness, vision changes/loss, spinal fluid leakage, non-healing and/or infected incision, headaches, difficulty or inability to swallow, hoarseness, hemopneumothorax, pneumothorax, impotence, retrograde ejaculation, vaginal dryness; injury to nerves, spinal cord, blood vessels, lymphatics or other vital organs (i.e., bowel injury, injury to the great vessels); heterotop ic bone formation; complications related to the hardware such as screws, rods, cages including misplaced hardware, device failure, instrumentation at the wrong spine level, hardware fracture/breakage, or hardware loosening; vertebral failure of the spinal column above or below the newly placed hardware; retained surgical instrumentations or devices and the need for further surgery. * Medical risks of the planned spine surgery include but are not limited to generalized Infections to the whole body or local areas outside of the surgical site (sepsis), heart attack, bleeding, anaphylaxis, meningitis, seizure, epilepsy, hearing loss, burn jensen, laceration of the head or other areas of the body, bruising, hypersensitivity of the skin, bladder over distension; allergic reaction; shoulder injury related to positioning; fat, blood and air clots to other areas of the body like heart, lungs, brain; failure of internal organs such as lungs, kidneys, liver and excessive bleeding. If blood transfusions are necessary, note that transfusions may cause intolerance reactions such as anaphylaxis or other complex reactions. Despite best efforts, the results of spine surgery might not heal in terms of bone, soft tissues such as skin, fascia, ligaments, and joints. Additionally, in order to achieve best possible results, spine surgery may be carried out beyond the initially planned levels and involve decompression, fusion including insertion of hardware at levels other than the original intended area of surgical interest change some portions of the procedure in order to ensure the best possible outcomes. With spine surgery and spinal fusion, there are different off label uses of instrumentation (devices, implants and hardware) as well as biological substances (bone morphogenic proteins, demineralized bone matrix) as well as using extra bone from allograft sources (i.e. cadaver bone) or autograft (iliac crest bone, ribs, or the spine itself). The patient has been given information about these practices and their inherent risks and benefits. [facility] is an educational center that serves as a training facility for neurosurgical and orthopedic ELEVATOR INSTALLER and Nursing students. Physician assistants are medically trained surgical providers who function in the outpatient, inpatient, and operating room setting under the direct supervision of the attending surgeon. [facility] has multiple operating rooms with single and overlapping rooms running daily. They currently function under the required guidelines as produced by the [facility] Finance Committee with regards to the overlapping rooms and will continue to comply with changes to this policy as they occur. The requirements include and are complied with as follows: (1) the critical portions of the overlapping rooms will not occur at the same time, (2) the attending physician will be physically present during the critical portions of the procedure and immediately available during the entire case, and (3) a back-up attending is designated should the primary attending not be immediately available. The patient has had a chance to review all the listed information, has been given print outs detailing this information, and has had all his/her questions answered to their satisfaction. It was my pleasure to have seen and examined Mr. Sebastian. In our visit today we have had a chance to go over my understanding of our patient's current condition, the natural course history without intervention and various interventional options. Questions were invited and answered, and the patient wishes to proceed as outlined above. I have seen and examined the patient for 25 minutes and we have spent more than 50% of the time in repeat and detailed counseling about the patient's condition, its natural course history with out and as much as can be predicted with surgery and re-review of various surgical treatment options. In conclusion, Mr. Sebastian requested we proceed with the above suggested surgery and are willing to accept risks and limitations of the suggested surgery as nature of the disease process and our best attempts at treatment for the condition. Thank you again for allowing us to be part of your patient's care. Please don't hesitate to contact me if you have any further questions. FOLLOW UP: Preoperative Evaluation PATIENT EDUCATION: Medications Reviewed: YES In our visit today Mr. Sebastian and I have had a chance to go over my understanding of the patient's current condition, the natural course history without intervention and various interventional options. Questions were invited and answered, and the patient wishes to proceed as outlined above. I will be sure to keep you updated after Mr. Sebastian returns here for further follow-up. Thank you again for your referral. Please do not hesitate to contact me if you have any further questions. Signed and authenticated by: Manuel Ayon [facility] [address] [place] [address] This message is confidential, intended only for the named recipient(s) and may contain information that is privileged or exempt from disclosure under applicable law. If you are not the intended recipient(s), you are notified that the dissemination, distribution or copying of this information is strictly prohibited. If you received this message in error, please notify the sender then delete this message. # SIGNED BY Manuel Mendez (GOO)07/06/2023 08:49AM Past Medical History Past Medical History: Hyperlipidemia, Hypertension, Osteoarthritis (OA), Thyroid Disorder Additional Past Medical History / Comment(s): hx of colon polyps, lt knee injury History of Any Multi-Drug Resistant Organisms: None Reported Past Surgical History: Hernia Repair, Joint Replacement, Orthopedic Surgery Additional Past Surgical History / Comment(s): lt rotator cuff, abdominal hernia repair, LT KNEE SX X 3,. RT KNEE SX X 2, lt knee replacement, total L hip, R heel fusion Past Anesthesia/Blood Transfusion Reactions: No Reported Reaction Smoking Status: Never smoker - Past Family History Father Family Medical History: Cancer Additional Family Medical History / Comment(s): prostate Sister(s) Family Medical History: Cancer Additional Family Medical History / Comment(s): COLON Medications and Allergies Home Medications Medication Instructions Recorded Confirmed Type Atorvastatin [Lipitor] 20 mg PO QAM 03/04/15 07/18/23 History Levothyroxine Sodium [Synthroid] 125 mcg PO QAM 03/04/15 07/18/23 History atenoloL [Tenormin] 50 mg PO QAM 03/04/15 07/18/23 History Benazepril HCl 20 mg PO BID 04/06/16 07/18/23 History hydroCHLOROthiazide 25 mg PO QAM 04/06/16 07/18/23 History Meloxicam 7.5 mg PO BID 03/31/18 07/18/23 History Acetaminophen Tab [Tylenol Tab] 1,000 mg PO DAILY PRN 02/19/22 07/18/23 History Aspirin/Sod Bicarb/Citric Acid 1 each PO QAM 02/19/22 07/18/23 History [[place] Original Tab Eff] Acetaminophen-Codeine 300-30mg 1 tab PO Q4H PRN 3 Days #15 tablet 06/22/23 07/18/23 Rx [Tylenol w/codeine #3] Vitamin D3 10,000 units PO HS 07/18/23 07/18/23 History Allergies Allergy/AdvReac Type Severity Reaction Status Date / Time No Known Allergies Allergy Verified 07/18/23 09:14 Physical Examination Osteopathic Statement: *. No significant issues noted on an osteopathic structural exam other than those noted in the History and Physical/Consult.
[~2023-07-21 09:41] MED LIST changes: +LIDOCAINE 1% (10MG/ML) FOR IV START INTRADERMA PRN; +MIDAZOLAM 2 MG/2 ML VIAL IV PRN; +ONDANSETRON 4 MG/2 ML VIAL IVP PRN; -REGADENOSON 0.4 MG/5 ML SYRINGE IV PRN; +TRANEXAMIC 1,000 MG/100ML-NACL 1,000 MG in SALINE 1 100ML.BAG IVPB PRN
[2023-07-21] MEDS: LACTATED RINGERS 1,000 ML IV ONE ×2 (10:06→12:35)
[2023-07-21] MEDS: GABAPENTIN 300 MG CAP PO PRN (10:14)
[2023-07-21] MEDS: ONDANSETRON 4 MG/2 ML VIAL IVP ONE (10:14)
[2023-07-21] MEDS: DEXAMETHASONE SOD PHOSPHATE 4 MG/ML 1 ML VIAL IV ONE (10:14)
[2023-07-21] MEDS: ACETAMINOPHEN TAB 500 MG TAB PO PRN (10:14)
[2023-07-21] MEDS ORDERED: MIDAZOLAM 2 MG/2 ML VIAL ONE (11:36)
[2023-07-21] MEDS ORDERED: GLYCOPYRROLATE 0.2 MG/ML 2 ML VIAL ONE (11:36)
[2023-07-21] MEDS ORDERED: ROCURONIUM 10 MG/ML (5 ML VIAL) IV ONE (11:36)
[2023-07-21] MEDS ORDERED: fentaNYL (PF) 50 MCG/ML 2 ML AMP ONE (11:36)
[2023-07-21] MEDS ORDERED: ePHEDrine 50 MG/ML 1 ML VIAL ONE (11:36)
[2023-07-21] MEDS ORDERED: SUCCINYLCHOLINE CHLORIDE 200 MG/10 ML VIAL IV ONE (11:36)
[2023-07-21] MEDS ORDERED: TRANEXAMIC 1,000 MG/100ML-NACL PREMIX BAG ONE (11:36)
[2023-07-21] MEDS ORDERED: PROPOFOL 10 MG/ML 20 ML VIAL IV ONE (11:36)
[2023-07-21] MEDS ORDERED: NEOSTIGMINE 1 MG/ML 10 ML VIAL ONE (11:36)
[2023-07-21] MEDS ORDERED: LIDOCAINE 1% INJ 10MG/ML (20 ML MDV) ONE (11:36)
[2023-07-21] MEDS: BUPIVACAINE (PF) 0.5% 30 ML VIAL SQ ONE (12:11)
[2023-07-21] MEDS: THROMBIN (BOVINE) 5,000 UNIT VIAL TOPICAL ONE (12:11)
[2023-07-21] MEDS: LIDOCAINE 2%-EPI 1:100,000 20 ML VIAL SQ ONE (12:11)
[2023-07-21] MEDS: ceFAZolin 3 GM in SODIUM CHLORIDE 0.9% 100 ML IVPB PRN (12:11)
[2023-07-21] MEDS: VANCOMYCIN 1,000 MG VIAL MISCELLANE ONE (13:11)
--- NOTE | 2023-07-21 13:43 | XR ---
EXAMINATION TYPE: XR lumbar spine 2 or 3V, FL guidance operating room DATE OF EXAM: 07/21/2023 Comparison: None Clinical History: LUMBAR LAMINECTOMY WITH DECOMP Findings: Lumbar laminectomy with decomp. 5.6325 Gycm2 DAP and 11.4 sec FL time with [place]. 5 images sent to PACS. Impression: Intraoperative fluoroscopy as above.
--- NOTE | 2023-07-21 13:45 | P.OP ---
Date of Procedure: 07/21/23 Preoperative Diagnosis: 1. L2-3 HNP WITH SEVERE STENOSIS 2. LE RADICULOPATHY 3. LE WEAKNESS 4. LOW BACK PAIN 5. MORBID OBESITY BMI 48.8 Postoperative Diagnosis: 1. L2-3 HNP WITH SEVERE STENOSIS 2. LE RADICULOPATHY 3. LE WEAKNESS 4. LOW BACK PAIN 5. MORBID OBESITY BMI 48.8 Procedure(s) Performed: 1. L2-3 BILATERAL LAMINECTOMY PARTIAL MEDIAL FACETECTOMY AND FORAMINOTOMY WITH DISCECTOMY CPTMOD 22 THIS CASE TOOK 80% LONGER THAN EXPECTED DUE TO CORMORBID CONDITIONS, HIGH BMI >45, EXTENT OF LUMBAR DISEASE AND HIGH TECHNICALITY OF THE CASE. Implants: NONE Anesthesia: LILLIAMA Surgeon: Manuel Mendez Hide And Skin Classer #1: Jalen Pina (WAS PRESENT AND ASSISTED WITH ALL ASPECTS OF THE CASE FROM POSITION TO CLOSURE) Estimated Blood Loss (ml): 100 IV fluids (ml): 1,200 Urine output (ml): 0 Pathology: none sent Condition: stable Disposition: PACU Indications for Procedure: Mr. Sebastian is presenting for evaluation of low back and bilateral lower extremity pain, bilateral lower extremity numbness and tingling right worse than left). It was my pleasure to have seen and examined Mr. Sebastian. In our visit today we have had a chance to go over subjective complaints, physical examination findings and treatments including the natural course history without intervention and various interventional options. The patients alverne spaulding demonstrates: [facility]: - Re-reviewed wit the patient today. IMPRESSION: 1. Moderately large right paracentral disc herniation L2-3 with moderate anterior thecal sac compression. No spinal canal stenosis is present. 2. Broad-based disc bulge L4-5 moderate anterior thecal sac compression. Some congenital spinal canal stenosis may be present. 3. Right paracentral disc bulging L5-S1. No thecal sac compression. 4. Multilevel severe foraminal stenosis including right L5-S1, left L4-5 left L3-4. Correlate for the patient's radicular symptoms. XRay Lumbar Multiview (AP, Lateral, Flexion, Extension) with AP pelvis; 5 views taken at [facility] on 02/16/23: - Re-reviewed with the patient today. moderate multilevel spondylitic and degenerative changes with scoliotic curvature to the left. Multilevel diminished disc height. Grade 1 anterolisthesis L4 onto L5. Vertebral body heights are preserved. No acute osseous abnormalities. Pelvis: The visualized sacrum and iliac wings are within normal limits.Left total hip arthroplasty noted. Hardware is intact with no migration. On physical exam, Mr. Sebastian demonstrates: A dull ache-like pain throughout the low back that radiates down into the bilateral lower extremities with a shooting quality. He notes mild numbness and tingling throughout the lower extremities, worse on the right compared to the left. He states his symptoms worsen after prolonged walking or standing. He notes he "has not been walking right for approximately 5 years" due to his gradually worsening symptoms. He reports experiencing severe sleep disturbances related to his ongoing pain and associated symptoms. I have explained to the patient that as their condition progresses it will cause further neurological deficits and eventual paralysis. Based on the patients imaging, physical exam, and the rapid progression and disabling nature of their symptoms, at this time I recommend surgery in the form of a: L2-3 laminectomy. I discussed the risk and benefits of this procedure at length with Mr. Sebastian . The patient agreed to considered pursuing the procedure abovementioned. Prior to surgery, she should follow up with her PCP (Cardio, ID, IM etc) for clearance. Questions were invited and answered, and the patient wishes to proceed as outlined below. Currently, I am recommendin.L2-3 laminectomy Description of Procedure: L2-3 LAMINECTOMY WITH DISCECTOMY The patient was seen and examined in the preoperative area. All preoperative protocols were followed. Informed consent was obtained, risks and benefits of the procedure were discussed at length. Risks including bleeding infection damage to the surrounding tissue and risk of reoperation were discussed with the patient. Risk of anesthesia up to and including was discussed with the patient. These are outlined in the risk review. They were willing to accept these risks and all the risks of surgery. The patient was given a weight-based dose of antibiotics in the form of 2 g Ancef. The patient was seen and evaluated by the anesthesia team who deemed them fit for surgery. The site was marked, the patient was willing to proceed with the procedure. The patient was transferred to the operative suite by the Department of anesthesia. They were then drifted off to sleep by the department anesthesia and GETA was performed. The patient tolerated this well. Once confirmation of lines and ventilation the patient was transferred to a prone Saul table very carefully. All bony prominences including wrists, elbows, axilla, chest, hips, and thighs, and feet were padded very well. Special attention was paid to the genitalia, and these were padded accordingly. SCDs were placed on bilateral lower extremities and were connected. Arms were well padded and placed on arm boards up and out in the 90/90 position. Once in position, again we confirmed good ventilation capabilities and that lines were running appropriately. The patients Lumbar spine was then exposed. 1010s were placed outlining the incision site. Standard alcohol was used to clean the incision site and allowed to dry. C-arm was used to needle localize the pedicles at L2-3 and bio-naveen the patient and confirm level for incision which was marked with a skin marker. Operative briefing was performed with all teams and everyone in agreement to proceed. The patient was then prepped and draped in a normal sterile fashion. Timeout was then performed, and all parties agreed with the procedure to be performed. Skin incision was made over the previously marked area and dissection taken down to the deep facia which was split just off midline for a midline sparing approach. Subperiosteal dissection was then taken down the lamina over the facet joints and identifying the pars at L2. [place] 4 was placed at the level of the pars of L4 and a lateral image taken to confirm operative level. Retractors were then placed. Microscope was then brought in for visualization. Bilateral laminectomy, partial medial facetectomy and foraminotomy were performed at L2-3 using high speed cat and Kerrison rongure. The ligamentum flavum was removed with Kerrison and curette. Dura and roots protected. The disc space was identified along with the herniation. 11 blade was used to make small annulotomy and micro-pituitary used to remove loose disc fragments on the RHS. Once fragments were removed, down biting curette was used to push any medial fragments down and towards the annulotomy and decompress centrally. The disc space was irrigated, and any loose fragments removed again. Bipolar was used for hemostasis and scarring of the annulotomy. The area was irrigated, and meticulous hemostasis performed. The bed was inspected, and all roots have ample room and are decompressed along with the dura. There were no injuries. Retractors were then removed. The wound was copiously irrigated with NSS. The deep fascia was closed with #1 PDS. Deep sub-q with 0 Vicryl and superficial with 2-0 Vicryl. Skin closed with Munith. The wound edges approximated well. The wound was then cleaned, and glue tape placed on the skin and allowed to dry. It was then Covered with an Opifoam dressing. The patient was then transferred off the table back to their hospital bed a- traumatically. They were extubated by the department of anesthesia. They were then transferred to PACU in stable condition having tolerated the procedure with no complications.
[2023-07-21] MEDS ORDERED: CYCLOBENZAPRINE 5 MG TAB PO PRN (14:06)
[2023-07-21] MEDS ORDERED: HYDROmorphone 0.5 MG/0.5 ML SYRINGE IVP PRN (14:06)
[2023-07-21] MEDS ORDERED: HYDROcodone/APAP 5-325MG 1 EACH TAB PO PRN (14:06)
[2023-07-21] MEDS ORDERED: MAGNESIUM HYDROXIDE 2,400 MG/30 ML CUP PO PRN (14:06)
[2023-07-21] MEDS ORDERED: SENNOSIDES-DOCUSATE SODIUM 1 EACH TAB PO PRN (14:06)
[2023-07-21] MEDS ORDERED: HYDROcodone/APAP 10-325MG 1 EACH TAB PO PRN (14:06)
[2023-07-21 14:11] VITALS: TEMP 97
[2023-07-21] MEDS: LACTATED RINGERS 1,000 ML IV SCH (14:30)
[2023-07-21] MEDS: HYDROmorphone 0.5 MG/0.5 ML SYRINGE IVP PRN (14:41)
[2023-07-21 16:03] VITALS: BP 135/67; PULSE 70
[2023-07-21 16:04] VITALS: RESP 20
[2023-07-21] MEDS ORDERED: GABAPENTIN 300 MG CAP PO SCH (17:00)
[2023-07-21] MEDS ORDERED: ACETAMINOPHEN TAB 325 MG TAB PO SCH (18:00)
== END 2023-07-21 16:30 | disposition home or self-care (01) ==
LOC: OR 09:41
PROVIDERS: ATTEND Orthopaedic Surgery
DX: M48.061 Spinal stenosis, lumbar region without neurogenic claudication (principal); M51.16 Intervertebral disc disorders with radiculopathy, lumbar region; M47.26 Other spondylosis with radiculopathy, lumbar region; M43.16 Spondylolisthesis, lumbar region; E66.01 Morbid (severe) obesity due to excess calories; E78.5 Hyperlipidemia, unspecified; I10 Essential (primary) hypertension; Z68.42 Body mass index [BMI] 45.0-49.9, adult; Z79.890 Hormone replacement therapy; Z79.899 Other long term (current) drug therapy; Z98.890 Other specified postprocedural states
CPT/HCPCS: 72100; 63047; 63048; J3370; J1100; J0690; J2405; J1170; J0665

== ENCOUNTER → 2023-12-22 | Outpatient (CLI) | payer BC ==
--- NOTE | 2023-12-22 11:08 | US ---
EXAMINATION TYPE: US venous doppler duplex UE RT DATE OF EXAM: 12/22/2023 COMPARISON: NONE CLINICAL INDICATION: Male, 63 years old with history of R79.1 ABNORMAL COAGULATION PROFILE; rt arm ed ulises. TECHNIQUE: Grayscale, color Doppler and spectral Doppler imaging of the upper extremity. SIDE PERFORMED: Right FINDINGS: Right Arm: Negative for DVT Grayscale, color doppler, spectral doppler imaging performed of the deep veins of the upper extremiti es. IMPRESSION: No evidence for deep vein thrombosis. [facility], , 12/22/2023 11:05 AM
== END | disposition home or self-care (01) ==
LOC: RADUSWWP 10:26
PROVIDERS: ATTEND Family Medicine

== ENCOUNTER → 2024-01-27 | Outpatient (CLI) | payer BC ==
[2024-01-27 15:32] LABS: C Reactive Protein 1.9 mg/dL (0.00-0.80)
[2024-01-28 11:13] LABS: HLA B27 NEGATIVE
== END | disposition home or self-care (01) ==
LOC: LABWHC1 08:20
PROVIDERS: ATTEND Nurse Practitioner Adult Health
DX: M25.50 Pain in unspecified joint (principal)
CPT/HCPCS: 36415; 82550; 85652; 86140; 86812

== ENCOUNTER → 2024-06-01 | Outpatient (CLI) | payer BC ==
--- NOTE | 2024-06-01 08:49 | XR ---
EXAMINATION TYPE: XR chest 2V DATE OF EXAM: 06/01/2024 CLINICAL INDICATION: Male, 63 years old with history of M25.519,R79.82,M47.816, chronic pain. TECHNIQUE: Frontal and lateral views of the chest are obtained. COMPARISON: Chest x-ray July 07, 2023 FINDINGS: Possible underlying emphysematous change. There is no focal air space opacity, pleural effu kings, or pneumothorax seen. Mild cardiomegaly is redemonstrated. The osseous structures are intact. IMPRESSION: Mild cardiomegaly without acute pulmonary process. [facility], , 06/01/2024 8:46 AM
--- NOTE | 2024-06-01 08:51 | XR ---
EXAMINATION TYPE: XR Hip Bilateral and AP pelvis DATE OF EXAM: 06/01/2024 COMPARISON: CT abdomen and pelvis 2016 CLINICAL INDICATION: Male, 63 years old with history of M25.519,R79.82,M47.816; chronic pain TECHNIQUE: A single AP view of the pelvis is obtained. Two views of bilateral hips are obtained. FINDINGS: There is no acute fracture/dislocation evident in the pelvis or either hip. Sacroiliac jesenia nts are symmetric and within normal limits. Pubic symphysis is intact. Metallic hardware from total left hip arthroplasty is present. Hardware position is satisfactory. So me heterotopic ossification at this level is present. Mild narrowing and acetabular spurring in the r ight hip is redemonstrated. Femoral head shape is maintained. IMPRESSION: As above. [facility], , 06/01/2024 8:49 AM
--- NOTE | 2024-06-01 08:53 | XR ---
EXAMINATION TYPE: XR shoulder complete BILAT DATE OF EXAM: 06/01/2024 CLINICAL INDICATION: Male, 63 years old with history of M25.519,R79.82,M47.816, pain TECHNIQUE: Three views of the bilateral shoulders are obtained. COMPARISON: Right shoulder x-ray November 02, 2023. FINDINGS: Mild to moderate spurring of left acromioclavicular joint. Mild spurring of right acromiocl avicular joint. There is some narrowing of the right glenohumeral joint. The bilateral ribs are gross ly intact. Overlying soft tissue is unremarkable. IMPRESSION: As above. [facility], , 06/01/2024 8:51 AM
[2024-06-01 10:29] LABS: Basophils # (A) 0.08 X 10*3/uL (0.00-0.10); Eosinophils # (A) 0.08 X 10*3/uL (0.04-0.35); HCT 50.2 % (39.6-50.0); HGB 16.2 g/dL (13.0-17.0); Lymphocytes # (A) 1.87 X 10*3/uL (0.90-5.00); Lymphocytes % (A) 24.3 %; MCH 32.1 pg (27.0-32.0); MCHC 32.3 g/dL (32.0-37.0); MCV 99.4 FL (80.0-97.0); Mean Platelet Volume 10.1 FL (9.5-12.2); Monocytes # (A) 0.68 X 10*3/uL (0.20-1.00); Monocytes % (A) 8.9 %; NRBC Per 100 WBC 0 X 10*3/uL (0.00-0.01); Neutrophils # (A) 4.94 X 10*3/uL (1.80-7.70); Neutrophils % (A) 64.4 %; Platelet Count 200 X 10*3/uL (140-440); RBC 5.05 X 10*6/uL (4.40-5.60); RDW 13.8 % (11.5-14.5); WBC 7.68 X 10*3/uL (4.50-10.00)
[2024-06-01 11:10] LABS: Erythrocyte Sedimentation Rate 6 mm/Hr (0-20)
[2024-06-01 15:48] LABS: Hepatitis C IgG Antibody Nonreactive (Nonreactive)
[2024-06-01 16:00] LABS: Protein, Total 6.4 g/dL (6.2-8.2)
[2024-06-01 16:45] LABS: Creatine Kinase 89 U/L (35-257); Rheumatoid Factor, Qnt <15 IU/mL (0-15)
[2024-06-01 16:48] LABS: ALT 39 U/L (10-49); AST 29 U/L (14-35); Albumin 4.3 g/dL (3.8-4.9); Albumin/Globulin Ratio 2.15 Ratio (1.60-3.17); Alkaline Phosphatase 87 U/L (41-126); BUN/Creat Ratio 21.33 Ratio (12.00-20.00); Blood Urea Nitrogen 19.2 mg/dL (9.0-27.0); Calcium 10.1 mg/dL (8.7-10.3); Carbon Dioxide 26.1 mmol/L (21.6-31.8); Chloride 102 mmol/L (96-109); Glucose 108 mg/dL (70-110); Potassium 4.7 mmol/L (3.5-5.5); Sodium 144 mmol/L (135-145); Total Bilirubin 0.6 mg/dL (0.3-1.2); Total Protein 6.3 g/dL (6.2-8.2)
[2024-06-01 17:49] LABS: JO-1 IgG Antibody <0.2 AI
[2024-06-01 17:50] LABS: Cyclic Citrull Pep IgG Unit <1.5 U/mL (<=3.9); Cyclic Citrullinated Pep IgG Negative
== END | disposition home or self-care (01) ==
LOC: LABWHC1 07:50
PROVIDERS: ATTEND Internal Medicine Rheumatology
DX: M25.519 Pain in unspecified shoulder (principal); M79.659 Pain in unspecified thigh; M79.18 Myalgia, other site; M47.816 Spondylosis without myelopathy or radiculopathy, lumbar region; M25.559 Pain in unspecified hip; I51.7 Cardiomegaly; G89.29 Other chronic pain; R79.82 Elevated C-reactive protein (CRP)
CPT/HCPCS: 36415; 71046; 73521; 80053; 82306; 82550; 83520; 84165; 84443; 85025; 85652; 86038; 86140; 86200; 86235; 86334; 86431; 86618; 86803